=== PATIENT | female | born 1945 | race Caucasian/White ===

== ENCOUNTER 2016-04-01 23:18 | Observation (INO) | payer OTHER ==
[~2016-04-01] VITALS: Ht 157.5 cm; Wt 107.0 kg
--- NOTE | 2016-04-01 23:26 | NUR ---
LINDSEY TOOK 70 UNITS SHORT ACTING INSULIN "THE BLUE BOX" INSTEAD OF 7 UNITS. WHEN SHE REALIZED THE MIX UP, SHE TOOK 3 GLUCOSE TABLETS. ACCUCHECK 170 PRIOR TO INSULIN ADMINISTRATION. ACCUCHECK 208 UPON EMS ARRIVAL AND 230 APPROX 5 MINS AGO. ARRIVES AAOX3 AND OFFERS NO COMPLAINTS
--- NOTE | 2016-04-01 23:32 | NUR ---
DR ANGUIANO AT BEDSIDE FOR EVAL
--- NOTE | 2016-04-01 23:34 | ED GENERAL ADULT ---
See Addendum History of Present Illness General Chief Complaint: General Adult Stated Complaint: LINDSEY "I TOOK TOO MUCH INSULIN BY ACCIDENT" Source: patient, family, old records Exam Limitations: no limitations Vital Signs & Intake/Output Vital Signs & Intake/Output Vital Signs Date Time Temp Pulse Resp B/P Pulse O2 O2 Flow FiO2 Ox Delivery Rate 04/02 0628 98.0 69 16 139/65 97 Room Air 04/02 0601 98.0 69 16 139/65 99 Room Air 04/02 0342 98.0 68 18 158/68 97 Room Air 04/02 0122 97.5 77 16 120/58 97 Room Air 04/01 2328 99 Room Air 04/01 2325 98.0 81 16 133/67 99 Room Air ED Intake and Output 04/02 0000 04/01 1200 Intake Total Output Total Balance Patient 236 lb Weight Allergies Coded Allergies: NO KNOWN ALLERGIES (08/10/11) Triage Note: LINDSEY TOOK 70 UNITS SHORT ACTING INSULIN "THE BLUE BOX" INSTEAD OF 7 UNITS. WHEN SHE REALIZED THE MIX UP, SHE TOOK 3 GLUCOSE TABLETS. ACCUCHECK 170 PRIOR TO INSULIN ADMINISTRATION. ACCUCHECK 208 UPON EMS ARRIVAL AND 230 APPROX 5 MINS AGO. ARRIVES AAOX3 AND OFFERS NO COMPLAINTS Triage Nurses Notes Reviewed? yes HPI: Patient takes 70 units of long-acting and insulin every night however tonight she accidentally took 70 units of her short-acting insulin. Patient then ate 4 glucose tablets and comes in for evaluation. Patient's other complaint is that over the past few weeks she's been having worsening dyspnea on exertion. Patient denies any chest pain or chest tightness. There is no orthopnea. There is no coughing. There are no fevers or chills. Patient is trying to get in to see a nurse assistant secondary to this dyspnea on exertion. (ANNMARIE TRUJILLO,SORAYA Moralez) Past History Medical History Any Pertinent Medical History? see below for history Cardiovascular: hypertension, hyperlipidemia Endocrine: diabetes Cancer(s): breast cancer Surgical History Surgical History: non-contributory, masectomy Psychosocial History What is your primary language [place] Tobacco Use: Never used ETOH Use: denies use Illicit Drug Use: denies illicit drug use Family History Hx Contributory? No (ANNMARIE TRUJILLO,SORAYA Moralez) Review of Systems Review of Systems Constitutional: Reports: no symptoms. EENTM: Reports: no symptoms. Respiratory: Reports: see HPI, short of breath. Cardiovascular: Reports: no symptoms. GI: Reports: no symptoms. Genitourinary: Reports: no symptoms. Musculoskeletal: Reports: no symptoms. Skin: Reports: no symptoms. Neurological/Psychological: Reports: no symptoms. Hematologic/Endocrine: Reports: no symptoms. Immunologic/Allergic: Reports: no symptoms. All Other Systems: Reviewed and Negative (ANNMARIE TRUJILLO,SORAYA Moralez) Physical Exam Physical Exam General Appearance: well developed/nourished, alert, awake, mild distress Head: atraumatic, normal appearance Eyes: Bilateral: PERRL, EOMI. Ears, Nose, Throat: normal pharynx, normal ENT inspection, hearing grossly normal Neck: normal inspection, supple, full range of motion, NO JVD Respiratory: normal breath sounds, chest non-tender, no respiratory distress, lungs clear Cardiovascular: regular rate/rhythm, normal peripheral pulses Gastrointestinal: normal bowel sounds, soft, non-tender, no organomegaly Rectal: bROWN STOOL TRACE HEME POSITIVE Extremities: normal inspection, normal capillary refill, normal range of motion, no edema Neurologic/Psych: no motor/sensory deficits, awake, alert, oriented x 3, normal mood/affect Skin: intact, normal color, warm/dry Lymphatic: no anterior cervical ganesh Core Measures ACS in differential dx? No CVA/TIA Diagnosis: No Severe Sepsis Present: No Septic Shock Present: No (ANNMARIE TRUJILLO,SORAYA Moralez) Progress Differential Diagnoses I considered the following diagnoses in my evaluation of the patient: [ Accidental insulin overdose, CHF, [place], PE] Plan of Care: Orders Procedure Date/time Status Consistent Carbohydrate 1 04/02 B Active BLOOD PRODUCT PICKUP 04/02 0343 Active BLOOD PRODUCT PICKUP 04/[address] in observation 04/02 0050 Active Patient Data 04/02 0050 Active Code Status 04/02 0050 Active TYPE & SCREEN (NOT X-MATCH) 04/02 0029 Complete LEUKOCYTE POOR (PACKED CELLS) 04/02 0029 Active Telemetry/Fruit Preserver 04/01 2333 Active TROPONIN LEVEL 04/01 2333 Complete COMPREHENSIVE METABOLIC PANEL 04/01 2333 Complete CBC WITHOUT DIFFERENTIAL 04/01 2333 Complete B-TYPE NATRIURETIC PEP (BNP) 04/01 2333 Complete EKG 04/01 2333 Active FingerStick- Glucose 04/01 2326 Active Intake & Output 01/17 2325 Active Laboratory Tests 04/01/16 2324: Anion Gap 9, Estimated GFR > 60, BUN/Creatinine Ratio 33.8 H, Glucose 107 H, Calcium 9.5, Total Bilirubin 0.4, AST 15, ALT 24, Alkaline Phosphatase 49, Troponin I 0.01, Sug-N-Uvfbpiejpie Pept 188 H, Total Protein 6.4, Albumin 3.6, Globulin 2.8, Albumin/Globulin Ratio 1.3, CBC w Diff NO MAN DIFF REQ, RBC 3.17 L, MCV 70.3 L, MCH 22.0 L, RDW 17.3 H, MPV 8.3, Gran % 61.1, Lymphocytes % 24.7, Monocytes % 7.9, Eosinophils % 3.6, Basophils % 2.7 H, Absolute Granulocytes 2.8, Absolute Lymphocytes 1.1 L, Absolute Monocytes 0.4, Absolute Eosinophils 0.2, Absolute Basophils 0.1, PUBS MCHC 31.3 L Diagnostic Imaging: Viewed by Me: Radiology Read. Discussed w/RAD: Radiology Read. CXR Impression: PATIENT: ALEX MCDONNELL PRESENT AGE: 70 PATIENT ACCOUNT NO: [id number] : 44 LOCATION: [facility] ORDERING PHYSICIAN: SORAYA ANGUIANO MD SERVICE DATE: 04/01/16 EXAM TYPE: RAD - XRY- PORTABLE CHEST XRAY EXAMINATION: XR PORTABLE CHEST CLINICAL INFORMATION: Dyspnea on exertion COMPARISON: None. TECHNIQUE: Portable view of the chest was obtained. FINDINGS: Lung volumes are decreased, and there is mild elevation of the right hemidiaphragm. No focal consolidation is seen. No evidence of pneumothorax, pleural effusion, or pulmonary edema. Cardiac size is at the upper limits of normal. No acute osseous findings are seen. Left axillary clips are noted. IMPRESSION: Low lung volumes without additional acute findings. DICTATED BY: ROXANNA GREGG MD DATE/TIME DICTATED:04/02/1648 GEOCHEMISTRY TEACHER: JHONATAN DATE/TIME TRANSCRIBED:04/02/1648 CONFIDENTIAL, DO NOT COPY WITHOUT APPROPRIATE AUTHORIZATION. <Electronically signed in Other Vendor System> SIGNED BY: ROXANNA GREGG MD 04/02/16 0054 Initial ED EKG: NSR, nonspecific ST T wave chg Prior EKG: unchanged Rhythm Strip: normal sinus rhythm Hand-Off Endorsed To: ALF CHAVEZ MD Endorsed Time: 0700 Pending: other (RE-EVAL) (SORAYA ANGUIANO MD) Departure Departure Disposition: HOME OR SELF CARE Condition: Stable Clinical Impression Primary Impression: Hypoglycemia Secondary Impressions: Anemia Referrals: RICARDO TRUJILLO,TONY WILDER MD,KRISTY Jenkins (PCP/Family) Additional Instructions: Follow-up with gastroenterology. Return if symptoms worsen or for any concerns. Departure Forms: Customer Survey General Discharge Information (SORAYA ANGUIANO MD) Critical Care Note Critical Care Note Critical Care Time: mins: (75 MIONUTES) (SORAYA ANGUIANO MD) ED Attending Observation Initial Observation Note: I have seen and personally examined ALEX MCDONNELL on 04/02/16 at 0051. I agree with the current emergency department documentation. The disposition (admission or discharge) is uncertain at this time, she needs a period of observation for the following reason(s): [Patient is receiving 2 units of packed blood cells overnight. Patient's blood sugars also decreasing after the accidental insulin injection. D5 is being hung. Patient will require frequent Accu-Cheks and close monitoring secondary to the transfusion.] The ED Nurse caring for this patient has been personally informed as to what the patient is being observed for. Observation Re-Evaluation: I have reevaluated ALEX MCDONNELL on 04/02/16 at 0300. The physical findings that support the continued need to observe this patient include [PT DOING WELL WITH THE TRANSFUSION. Patient's finger stick is 145. At this point we will stop the D5 drip. Patient is doing well. Her lungs are clear to auscultation bilaterally cardiac exam is regular rate and rhythm.]. (SORAYA ANGUIANO MD) Observation Discharge: I have reevaluated ALEX MCDONNELL on 04/02/16 at 0804. The patient is: (x): Stable for discharge (): To be admitted to Nursing Floor (): To be placed in Observation on Nursing Floor (): For transfer to other facility The patient was being observed for hypoglycemia and anemia As a result of that observation, I have determined patients blood sugar has been stabilized and received PRBC for anemia. (ALF CHAVEZ MD)
--- NOTE | 2016-04-01 23:59 | NUR ---
LABS DRAWN AND SENT [facility] LAB [facility]
[2016-04-02 00:08] LABS: ABSOLUTE BASOPHIL COUNT 0.1 /CUMM (0.0-0.2); ABSOLUTE EOSINOPHIL COUNT 0.2 /CUMM (0.0-0.7); ABSOLUTE GRANULOCYTE CT 2.8 /CUMM (1.4-6.5); ABSOLUTE LYMPH COUNT 1.1 /CUMM (1.2-3.4); ABSOLUTE MONOCYTE COUNT 0.4 /CUMM (0.10-0.60); BASOPHIL % 2.7 % (0.0-2.0); EOSINOPHIL % 3.6 % (0-5); GRANULOCYTE % 61.1 % (42.2-75.2); HEMATOCRIT 22.3 % (37-47); MEAN CORPUSCULAR HGB CONC 31.3 G/DL (33.0-37.0); MEAN CORPUSCULAR VOLUME 70.3 FL (81.0-99.0); MEAN PLATELET VOLUME 8.3 FL (7.4-10.4); PLATELET COUNT 234 /CUMM (130-400); RBC DISTRIBUTION WIDTH 17.3 % (11.5-14.5); RED BLOOD CELL CT 3.17 /CUMM (4.20-5.40); WHITE BLOOD CELL COUNT 4.5 /CUMM (4.8-10.8)
--- NOTE | 2016-04-02 00:13 | NUR ---
CRITICAL TEST RESULTS [id number] ALEX MCDONNELL 70 F TESTS AND RESULTS: HGB = 7.0 / HCT = 22.3 Results received and read back by: SHARRI ANDRES Results received date and time: 04/02/16 0014 The following provider was notified of the results, and read the results back: ANNMARIE Notified date and time: 04/02/16 at 0010
--- NOTE | 2016-04-02 00:25 | NUR ---
DR ANGUIANO AT BEDSIDE FOR RECTAL EXAM--TRACE HEME POS
--- NOTE | 2016-04-02 00:43 | NUR ---
PINK TOP DRAWN AND SENT TO LAB
--- NOTE | 2016-04-02 00:54 | RADIOLOGY REPORT ---
EXAMINATION: XR PORTABLE CHEST CLINICAL INFORMATION: Dyspnea on exertion COMPARISON: None. TECHNIQUE: Portable view of the chest was obtained. FINDINGS: Lung volumes are decreased, and there is mild elevation of the right hemidiaphragm. No focal consolidation is seen. No evidence of pneumothorax, pleural effusion, or pulmonary edema. Cardiac size is at the upper limits of normal. No acute osseous findings are seen. Left axillary clips are noted. IMPRESSION: Low lung volumes without additional acute findings.
--- NOTE | 2016-04-02 00:55 | NUR ---
LAST FSBS = 100 DR ANGUIANO AWARE--D5W UP VIA PUMP AT 125ML/HR.
--- NOTE | 2016-04-02 01:30 | NUR ---
PT TO REMAIN IN ER EDOBS. AWAITING 1ST U PRBC'S
--- NOTE | 2016-04-02 02:00 | NUR ---
1ST U PRBC HUNG AT THIS TIME.
--- NOTE | 2016-04-02 02:20 | NUR ---
BLOOD INFUSING. NO CHANGE IN VS OR SIGNS OF REACTION. CM = NSR 70'S
--- NOTE | 2016-04-02 03:00 | NUR ---
FSBS = 145 DR ANGUIANO AWARE. D5W OFF AT THIS TIME.
--- NOTE | 2016-04-02 03:42 | NUR ---
1ST U PRBC'S FINISHED. PT REMAINS AWAKE, COOPERATIVE.
--- NOTE | 2016-04-02 04:02 | NUR ---
2ND U PRBC'S STARTED AT THIS TIME.
--- NOTE | 2016-04-02 04:28 | NUR ---
STATES SHE'S "FEELING A LITTLE ANXIOUS AND USUALLY TAKES ATIVAN BEFORE BED BUT DIDNOT TAKE IT TONITE" DR ANGUIANO AWARE. ATIVAN 0.5MG PO GIVEN
--- NOTE | 2016-04-02 05:10 | NUR ---
FSBS = 89. DR ANGUIANO AWARE--D5W STARTED AT 125ML/HR
--- NOTE | 2016-04-02 08:05 | NUR ---
PT ALERT AND ORIENTED WALKING AROUND ROOM AND REQUESRING TO BE DISCHARGED FS [address] BRE[address] PER DR CHAVEZ PT CAN BE DISCHARGED
[2016-04-02 08:06] VITALS: BP 142/70
== END 2016-04-02 09:00 ==
LOC: ERH 23:18 → ERHI 04-02 00:50 → EDBEDREQ 04-02 07:07 → ERHI 04-02 08:16
PROVIDERS: ADMIT Emergency Medicine
DX: T38.3X1A Poisoning by insulin and oral hypoglycemic [antidiabetic] drugs, accidental (unintentional), initial encounter (principal); Y92.009 Unspecified place in unspecified non-institutional (private) residence as the place of occurrence of the external cause; D64.9 Anemia, unspecified
CPT/HCPCS: 86920; 93005; 93010; J7060; P9016

== ENCOUNTER 2017-08-05 16:50 | Inpatient (IN) | payer OTHER ==
[~2017-08-05] VITALS: Ht 154.9 cm; Wt 97.5 kg
--- NOTE | 2017-08-05 17:55 | RADIOLOGY REPORT ---
EXAMINATION: XR PORTABLE CHEST CLINICAL INFORMATION: Pneumonia. Congestive heart failure. Shortness of breath. COMPARISON: 08/06/2016 TECHNIQUE: Portable frontal view of the chest was obtained. FINDINGS: Persistent elevation of the right hemidiaphragm. Low lung volumes. No focal consolidation or mass. No pleural effusion or pneumothorax. Normal pulmonary vascularity. Cardiac silhouette is prominent, likely accentuated by AP technique and low lung volumes. Normal pulmonary vascularity. IMPRESSION: Low lung volumes but no acute pulmonary disease.
[2017-08-05 18:04] LABS: ABSOLUTE BASOPHIL COUNT 0 /CUMM (0.0-0.2); ABSOLUTE EOSINOPHIL COUNT 0.1 /CUMM (0.0-0.7); ABSOLUTE GRANULOCYTE CT 3.8 /CUMM (1.4-6.5); ABSOLUTE LYMPH COUNT 1.3 /CUMM (1.2-3.4); ABSOLUTE MONOCYTE COUNT 0.4 /CUMM (0.10-0.60); BASOPHIL % 0.6 % (0.0-2.0); EOSINOPHIL % 1.6 % (0-5); GRANULOCYTE % 67.6 % (42.2-75.2); HEMATOCRIT 27.1 % (37-47); MEAN CORPUSCULAR HGB 29.6 PG (27.0-31.0); MEAN CORPUSCULAR HGB CONC 33.8 G/DL (33.0-37.0); MEAN CORPUSCULAR VOLUME 87.3 FL (81.0-99.0); MEAN PLATELET VOLUME 8.5 FL (7.4-10.4); PLATELET COUNT 242 /CUMM (130-400); RBC DISTRIBUTION WIDTH 13.3 % (11.5-14.5); RED BLOOD CELL CT 3.11 /CUMM (4.20-5.40); WHITE BLOOD CELL COUNT 5.6 /CUMM (4.8-10.8)
[2017-08-05 18:05] LABS: PT 12.3 SEC (9.4-12.5); PTT 27 SEC (25-37)
--- NOTE | 2017-08-05 18:15 | ED DYSPNEA/ASTHMA COMPLAINT ---
History of Present Illness General Chief Complaint: Dyspnea (COPD, CHF, Other) Stated Complaint: DIZZY, SOB, X 1 WEEK Source: patient Exam Limitations: no limitations Vital Signs & Intake/Output Vital Signs & Intake/Output Vital Signs Date Time Temp Pulse Resp B/P B/P Pulse O2 O2 Flow FiO2 Mean Ox Delivery Rate 08/05 2220 98.4 86 18 146/84 98 Room Air 08/058 98.5 85 18 142/65 97 Room Air 08/05 1839 84 18 138/64 Room Air 08/05 1839 87 138/64 08/05 1707 155/65 08/05 1701 97.5 96 20 95 Room Air Room Air Allergies Coded Allergies: No Known Allergies (08/05/17) Reconcile Medications Albuterol Sulfate (Proair Hfa) 90 MCG HFA.AER.AD 2 PUF INH AD PRN RESP. ( Reported) Aspirin (Ecotrin*) 81 MG TABLET.DR 1 TAB PO DAILY SUPPLEMENT (Reported) Clonazepam 2 MG TABLET 1 TAB PO QPM SLEEP (Reported) Clopidogrel Bisulfate (Clopidogrel) 75 MG TABLET 1 TAB PO DAILY BLOOD THINNER (Reported) Cyanocobalamin (Vitamin B-12) (Cyanocobalamin Injection) 1,000 MCG/ML VIAL 1 ML IM Q30D SUPPLEMENT (Reported) Ergocalciferol (Vitamin D2) (Vitamin D2) 50,000 UNIT CAPSULE 1 CAP PO Q3W SUPPLEMENT (Reported) Escitalopram Oxalate 20 MG TABLET 1 TAB PO DAILY DEPRESSION (Reported) Exenatide Microspheres (Bydureon Pen) (Unknown Strength) PEN.INJCTR (Unknown Dose) SC QW DM (Reported) Hydrocodone/Acetaminophen (Hydrocodon-Acetaminophen 5-325) 5 MG-325 MG TABLET 1 TAB PO BIDP PRN PAIN (Reported) Insulin Glargine,Hum.rec.anlog (Lantus Solostar) 100 UNIT/ML (3 ML) INSULN.PEN 60 UNIT SC QPM DM (Reported) Insulin Lispro (Humalog Kwikpen U-100) 100 UNIT/ML INSULN.PEN DM (Reported) Lisinopril/Hydrochlorothiazide (Lisinopril-Hctz 20-12.5 MG Tab) 20 MG-12.5 MG TABLET 1 TAB PO DAILY BP (Reported) Lovastatin 40 MG TABLET 1 TAB PO DAILY CHOLESTEROL (Reported) with food Metformin HCl (Metformin HCl ER) 500 MG [id number] 1 TAB PO BID DM (Reported) Metoprolol Tartrate 100 MG TABLET 1 TAB PO BID HEART/BP (Reported) Omeprazole 20 MG CAPSULE. 1 CAP PO DAILY GI (Reported) Triage Note: PT TO ED WITH FAMILY FOR INCREASED WEAKNESS, TIREDNESS, SOB X 1 WEEK. PT DENIES CHEST PAIN, OR NUMBNESS OR TINGLING. REPORTS SOME NAUSEA, BUT NO ABD PAIN. ALSO REPORTS +LIGHTHEADEDNESS. HX OF ANEMIA. Triage Nurses Notes Reviewed? yes Onset: Abrupt Duration: day(s): (3), constant, continues in ED, getting worse Timing: single episode today Severity: mild, moderate Activities at Onset: none Prior Episodes/Possible Cause: frequent episodes Associated Symptoms: weakness LMP (ages 10-50): unknown : No Patient currently breastfeeds: No HPI: 72-year-old female past medical history of present deficiency anemia, GI bleed, coronary artery disease, hypertension, diabetes presents for evaluation of dizziness, lightheadedness, weakness shortness of breath abdominal pain and melena. Patient states that starting 3 days ago she had a episode of black tarry stool once a day for the past 3 days. She also had a normal bowel movement today before coming in. No bright red blood. She does take Plavix. She has a history of GI bleed in 2017 the present similarly. She reports mild diffuse abdominal pain worsening epigastric area. No nausea vomiting no diarrhea. No fever. No chest pain. Symptoms are worse with exertion and improved at rest. She had a colonoscopy and endoscopy done when she had a GI bleed in March she also had a transfusion at that time. (Mik Dockery) Past History Travel History Traveled to [place] past 21 day No Medical History Any Pertinent Medical History? 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 No (Mik Dockery) Review of Systems Review of Systems Constitutional: Reports: weakness. EENTM: Reports: no symptoms. Respiratory: Reports: see HPI, short of breath. Cardiovascular: Reports: no symptoms. GI: Reports: see HPI, abdominal pain, melena. Genitourinary: Reports: no symptoms. Musculoskeletal: Reports: no symptoms. Skin: Reports: no symptoms. Neurological/Psychological: Reports: no symptoms. Hematologic/Endocrine: Reports: no symptoms. Immunologic/Allergic: Reports: no symptoms. All Other Systems: Reviewed and Negative (Mik Dockery) Physical Exam Physical Exam General Appearance: well developed/nourished, no apparent distress, alert, awake Head: atraumatic, normal appearance Eyes: Bilateral: PERRL, EOMI, pale conjunctivae. Ears, Nose, Throat: normal pharynx, normal ENT inspection, hearing grossly normal Neck: normal inspection, supple, full range of motion Respiratory: normal breath sounds, chest non-tender, no respiratory distress, lungs clear Cardiovascular: regular rate/rhythm, normal peripheral pulses Peripheral Pulses: 2+ radial (R), 2+ radial (L) Gastrointestinal: normal bowel sounds, soft, no organomegaly, tenderness ( DIFFUSE WORSE EPIGASTRIC ) Rectal: normal rectal tone, heme positive stool, bROWN STOOL HEME POSITIVE Extremities: normal inspection, normal range of motion, no edema Neurologic/Psych: no motor/sensory deficits, awake, alert, oriented x 3 Skin: intact, normal color, warm/dry Core Measures ACS in differential dx? No CVA/TIA Diagnosis No Sepsis Present: No Sepsis Focused Exam Completed? No (Mik Dockery) Progress Differential Diagnosis: asthma, AMI, bronchitis, CHF, COPD, musculoskeletal pain , pericarditis, pulmonary embolism, pneumonia, pneumothorax, unstable angina, gi BLEEDING, PEPTIC DISEASE, GASTRITIS, PANCREATITIS, DIVERTICULITIS Plan of Care: Orders Procedure Date/time Status Nothing by Mouth 08/06 B Active TROPONIN LEVEL 08/06 599 Active CBC WITHOUT DIFFERENTIAL 08/06 06 Active BASIC ELECTROLYTES PLUS BUN&CR 08/06 599 Active EKG 08/06 0600 Active Weight 08/06 2255 Active Vital Signs 08/06 2255 Active Teach/Educate 08/06 2255 Active Pain Treatment and Response 08/06 2255 Active Nutritional Intake, Monitor 08/06 2255 Active Isolation 08/06 2255 Active Intake & Output 08/06 2255 Active Patient Care Conference 08/06 2255 Active Activity/Ambulation 05/23 2256 Active TYPE & SCREEN (NOT X-MATCH) 08/06 2247 Active PT Evaluate & Treat 08/05 2233 Active Saline Lock 08/05 2233 Active Pathway - chart 08/05 2233 Active House Staff 08/05 2233 Active Patient Data 08/05 2144 Active Add-on Test (ER Only) 08/05 2100 Active OXYGEN SETUP (GEN) 08/05 2030 Active Saline Lock 08/05 2030 Active Admit to inpatient 08/05 2030 Active Vital Signs 08/05 2030 Active Activity/Ambulation 08/05 2030 Active Code Status 08/05 2030 Active Add-on Test (ER Only) 08/05 1820 Active LIPASE 08/05 173 Complete D-DIMER 08/05 1730 Complete Intake & Output 08/05 1725 Complete MISTAKE 08/05 1719 Active PARTIAL THROMBOPLASTIN TIME 08/05 1719 Complete PROTHROMBIN TIME 08/05 1719 Complete URINALYSIS 08/05 1656 Active TROPONIN LEVEL 08/05 165 Complete COMPREHENSIVE METABOLIC PANEL 08/05 1656 Complete CBC WITHOUT DIFFERENTIAL 08/05 1656 Complete EKG 08/05 1653 Active TRC EVALUATION (GEN) 08/05 UNK Active Lab Add-on Test 08/05 UNK Active VTE Mechanical Prophylaxis 08/05 UNK Active Vital Signs 08/05 UNK Active MISTAKE 08/05 UNK Complete Intake & Output 08/05 UNK Active Hemoccult 08/05 UNK Active Activity/Ambulation 08/05 UNK Active Current Medications Sig/Jessica Start time Last Medication Dose Stop Time Status Admin Atorvastatin Calcium 20 MG 1700 08/06 1700 AC (Lipitor) Insulin Detemir 20 UNITS BID 08/06 0900 UNVr (Levemir) Escitalopram Oxalate 20 MG 0800 08/06 0800 AC (Lexapro) Insulin Human Regular 0 Q6 08/05 2359 AC (NovoLIN R) Pantoprazole Sodium 40 MG DAILY 08/05 2330 AC (Protonix) Sodium Chloride 1,000 ML DAILY 08/05 2300 AC 08/05 (Normal Saline 0.9%) 08/06 0859 2322 Albuterol Sulfate 2 PUF Q4-6 PRN PRN 08/05 224 AC (Ventolin) Clonazepam 2 MG QPM 08/05 224 AC (Klonopin 1MG Tab) 08/13 2243 Laboratory Tests 08/05/17 1730: Anion Gap 14, Estimated GFR > 60, BUN/Creatinine Ratio 23.8, Glucose 141 H, Calcium 9.6, Total Bilirubin 0.5, AST 15, ALT 21, Alkaline Phosphatase 44, Troponin I < 0.01, Total Protein 6.6, Albumin 4.0, Globulin 2.6, Albumin/ Globulin Ratio 1.5, Lipase 44, PT 12.3, INR 1.13, APTT 27, D-Dimer High Sensitivty < 200, CBC w Diff NO MAN DIFF REQ, RBC 3.11 L, MCV 87.3, MCH 29.6, MCHC 33.8, RDW 13.3, MPV 8.5, Gran % 67.6, Lymphocytes % 23.4, Monocytes % 6.8, Eosinophils % 1.6, Basophils % 0.6, Absolute Granulocytes 3.8, Absolute Lymphocytes 1.3, Absolute Monocytes 0.4, Absolute Eosinophils 0.1, Absolute Basophils 0 \ Patient seen and evaluated. She is here with episodes of melena dizziness lightheadedness shortness of breath worse on exertion. She has a remote history of GI bleed. She is taking Plavix. Doesn't currently stable she is not orthostatic. Rectal exam is heme positive. Labs EKG CTA of the abdomen pelvis ordered. Blood work shows a hemoglobin of 9. Her previous blood work was done in November 2016 and showed a normal hemoglobin of 12. Remaining labs are unchanged. Spoke with Dr. Scherer who agrees with the plan of admitting for serial H&H's. Does not feel like she needs a emergent scope. He she will be admitted for GI consult, serial labs, monitoring of vital signs medication adjustment case discussed with Dr. CHAVEZ and he agrees. Diagnostic Imaging: Viewed by Me: Radiology Read, CT Scan. Discussed w/RAD: Radiology Read, CT Scan. Radiology Impression: PATIENT: ALEX MCDONNELL PRESENT AGE: 72 PATIENT ACCOUNT NO: [id number] : 44 LOCATION: [facility] ORDERING PHYSICIAN: Mik ROCK SERVICE DATE: 08/05/17 EXAM TYPE: CAT - CT ABD & PELVIS ANGIOGRAM EXAMINATION: CTA ABDOMEN AND PELVIS WITH AND WITHOUT CONTRAST : CT GI BLEEDING STUDY CLINICAL INFORMATION: GI BLEEDING ACUTE ABDOMEN. MILD DIFFUSE ABDOMINAL PAIN MELENA COMPARISON: No pertinent prior studies are available for comparison. TECHNIQUE: Multidetector volumetric imaging was performed from the lung bases to the pubic symphysis before and after the administration of: Intravenous contrast: 95 mL Optiray 320. No contrast reaction reported Sagittal and coronal reformatted images were obtained on the technologist workstation. FINDINGS: STOMACH: No abnormal wall thickening or mass. No intraluminal contrast accumulation to suggest hemorrhage. SMALL BOWEL: No abnormal wall thickening or dilation. No intraluminal contrast accumulation to suggest hemorrhage. COLON: There is expected mucosal enhancement, particularly conspicuous in the rectum, but no intraluminal contrast accumulation to suggest hemorrhage. No colonic wall thickening or pericolonic inflammatory changes. Diverticulosis without evidence of diverticulitis. Although the appendix is not definitely seen, there are no right lower quadrant inflammatory changes to suggest acute appendicitis. LUNG BASES: No nodules, mass , or focal consolidation. PLEURA: No pleural effusion. LIVER, GALLBLADDER, AND BILIARY TREE: The liver is normal in size, shape, and attenuation. No focal hepatic lesion or biliary ductal dilatation is present. The gallbladder is unremarkable with no evidence of radiopaque gallstones, gallbladder wall thickening, or obvious pericholecystic inflammatory changes. PANCREAS: The pancreas is diffusely atrophic. No pancreatic ductal dilatation. No mass seen. SPLEEN: Normal size. No focal lesion. ADRENAL GLANDS: Normal; no mass. KIDNEYS AND URETERS: The kidneys are normal in size, shape, and attenuation. No hydronephrosis, hydroureter, or calculi. ABDOMINAL WALL: Fat-containing midline hernia. LYMPHOVASCULAR STRUCTURES: Normal caliber abdominal aorta. No retroperitoneal lymphadenopathy. No mesenteric, iliac, or inguinal lymphadenopathy. BLADDER: No focal mass or wall thickening seen. No bladder calculi. PELVIC VISCERA: Normal CT appearance of the uterus. No adnexal mass seen. OSSEOUS STRUCTURES: No acute or suspicious osseous abnormality. IMPRESSION : No evidence of active intraluminal contrast accumulation to suggest an active site of GI bleeding at the time of the scan. DICTATED BY: Naun Ho MD DATE/TIME DICTATED:08/05/172033 HOUSE PLAYER:JHONATAN DATE/TIME TRANSCRIBED:08/05/172033 CONFIDENTIAL, DO NOT COPY WITHOUT APPROPRIATE AUTHORIZATION. <Electronically signed in Other Vendor System> SIGNED BY: Naun Ho MD 08/05/172055 CXR Impression: PATIENT: ALEX MCDONNELL PRESENT AGE: 72 PATIENT ACCOUNT NO: [id number] : 44 LOCATION: [facility] ORDERING PHYSICIAN: Mik ROCK SERVICE DATE: 08/05/17 EXAM TYPE: RAD - XRY-PORTABLE CHEST XRAY EXAMINATION: XR PORTABLE CHEST CLINICAL INFORMATION: Pneumonia. Congestive heart failure. Shortness of breath. COMPARISON: 08/06/2016 TECHNIQUE: Portable frontal view of the chest was obtained. FINDINGS: Persistent elevation of the right hemidiaphragm. Low lung volumes. No focal consolidation or mass. No pleural effusion or pneumothorax. Normal pulmonary vascularity. Cardiac silhouette is prominent, likely accentuated by AP technique and low lung volumes. Normal pulmonary vascularity. IMPRESSION: Low lung volumes but no acute pulmonary disease. DICTATED BY: Naun Ho MD DATE/TIME DICTATED:08/05/171749 HOUSE PLAYER:JHONATAN DATE/TIME TRANSCRIBED:08/05/171749 CONFIDENTIAL, DO NOT COPY WITHOUT APPROPRIATE AUTHORIZATION. <Electronically signed in Other Vendor System> SIGNED BY: Naun Ho MD 08/05/171754 Initial ED EKG: SINUS RHYTHM, pvc, INTRAVENTRICULAR CONDUCTION DELAY BORDERLINE r-WAVE PROGRESSION (Mik Dockery) Departure Departure Condition: Stable Clinical Impression Primary Impression: GI bleeding Qualifiers: GI bleed type/associated pathology: unspecified gastrointestinal hemorrhage type Qualified Code: K92.2 - Gastrointestinal hemorrhage, unspecified Secondary Impressions: Symptomatic anemia Referrals: Kaitlin Marie MD (PCP/Family) Departure Forms: Customer Survey General Discharge Information Admission Note Spoke With: Rowdy Rosenberg MD Documentation of Exam: Documentation of any treatments & extenuating circumstances including Concerns Regarding Discharge (functional status, medication knowledge or non-compliance, living conditions, etc.) that warrant an admission rather than observation: Patient is on Plavix. She is reporting multiple episodes of melena with epigastric pain. She is heme positive here. Her hemoglobin is below her baseline. She is a high risk patient [Serial H&H's, monitoring of vital signs, GI consult, IV fluids] (Mik Dockery) Departure Disposition: STILL A PATIENT PA/SUBASSEMBLIES WIRER Co-Sign Statement Statement: ED Attending supervision documentation- x I saw and evaluated the patient. I have also reviewed all the pertinent lab results and diagnostic results. I agree with the findings and the plan of care as documented in the PA's/SUBASSEMBLIES WIRER's documentation. Hx GI bleed with melena, weakness: symptomatic anemia [] I have reviewed the ED Record and agree with the PA's/SUBASSEMBLIES WIRER's documentation. [] Additions or exceptions (if any) to the PAs/SUBASSEMBLIES WIRER's note and plan are summarized below: [] (Samia TRUJILLO,Maxwell) Critical Care Note Critical Care Note Critical Care Time: non-applicable (Mik Dockery)
--- NOTE | 2017-08-05 20:56 | CT SCAN REPORT ---
EXAMINATION: CTA ABDOMEN AND PELVIS WITH AND WITHOUT CONTRAST: CT GI BLEEDING STUDY CLINICAL INFORMATION: GI BLEEDING ACUTE ABDOMEN. MILD DIFFUSE ABDOMINAL PAIN MELENA COMPARISON: No pertinent prior studies are available for comparison. TECHNIQUE: Multidetector volumetric imaging was performed from the lung bases to the pubic symphysis before and after the administration of: Intravenous contrast: 95 mL Optiray 320. No contrast reaction reported Sagittal and coronal reformatted images were obtained on the technologist workstation. FINDINGS: STOMACH: No abnormal wall thickening or mass. No intraluminal contrast accumulation to suggest hemorrhage. SMALL BOWEL: No abnormal wall thickening or dilation. No intraluminal contrast accumulation to suggest hemorrhage. COLON: There is expected mucosal enhancement, particularly conspicuous in the rectum, but no intraluminal contrast accumulation to suggest hemorrhage. No colonic wall thickening or pericolonic inflammatory changes. Diverticulosis without evidence of diverticulitis. Although the appendix is not definitely seen, there are no right lower quadrant inflammatory changes to suggest acute appendicitis. LUNG BASES: No nodules, mass, or focal consolidation. PLEURA: No pleural effusion. LIVER, GALLBLADDER, AND BILIARY TREE: The liver is normal in size, shape, and attenuation. No focal hepatic lesion or biliary ductal dilatation is present. The gallbladder is unremarkable with no evidence of radiopaque gallstones, gallbladder wall thickening, or obvious pericholecystic inflammatory changes. PANCREAS: The pancreas is diffusely atrophic. No pancreatic ductal dilatation. No mass seen. SPLEEN: Normal size. No focal lesion. ADRENAL GLANDS: Normal; no mass. KIDNEYS AND URETERS: The kidneys are normal in size, shape, and attenuation. No hydronephrosis, hydroureter, or calculi. ABDOMINAL WALL: Fat-containing midline hernia. LYMPHOVASCULAR STRUCTURES: Normal caliber abdominal aorta. No retroperitoneal lymphadenopathy. No mesenteric, iliac, or inguinal lymphadenopathy. BLADDER: No focal mass or wall thickening seen. No bladder calculi. PELVIC VISCERA: Normal CT appearance of the uterus. No adnexal mass seen. OSSEOUS STRUCTURES: No acute or suspicious osseous abnormality. IMPRESSION: No evidence of active intraluminal contrast accumulation to suggest an active site of GI bleeding at the time of the scan.
[2017-08-05] MEDS ORDERED: METOPROLOL TAR100 M1 PO (21:29)
[2017-08-05] MEDS ORDERED: HYDROCODON-ACE1 EAC2 PO (21:29)
[2017-08-05] MEDS ORDERED: OMEPRAZOLE20 M2 PO (21:29)
[2017-08-05] MEDS ORDERED: METFORMIN HCL500 M5 PO (21:29)
[2017-08-05] MEDS ORDERED: CLONAZEPAM2 M2 PO (21:30)
[2017-08-05] MEDS ORDERED: HUMALOG KW100 UNIT/1 SC (21:30)
[2017-08-05] MEDS ORDERED: BYDUREON P2 MG/0.65 SC (21:31)
[2017-08-05] MEDS ORDERED: LISINOPRIL-HCT1 EACH PO (21:31)
[2017-08-05] MEDS ORDERED: ESCITALOPRAM OX20 MG PO (21:32)
[2017-08-05] MEDS ORDERED: ASPIRIN EC81 M1 PO (21:32)
[2017-08-05] MEDS ORDERED: LOVASTATIN40 M1 PO (21:32)
[2017-08-05] MEDS ORDERED: CYANOCOBAL1000 MCG/2 IM (21:33)
[2017-08-05] MEDS ORDERED: VITAMIN D250000 UNIT PO (21:33)
[2017-08-05] MEDS ORDERED: LANTUS SOL100 UNIT/1 SC (21:33)
[2017-08-05] MEDS ORDERED: PROAIR HFA8.5 GM INH (21:34)
[2017-08-05] MEDS ORDERED: CLOPIDOGREL75 M1 PO (21:34)
--- NOTE | 2017-08-05 21:47 | History & Physical ---
Irena Jensen 08/05/17 3106: General Information and HPI MD Statement: I have seen and personally examined ALEX MCDONNELL and documented this H&P. The patient is a 72 year old F who presented with a patient stated chief complaint of [GI Bleed]. Source of Information: patient, old records Exam Limitations: no limitations History of Present Illness: Ms. Sarmiento a 72yo F w/ pMH of hypertension, hyperlipidemia, diabetes, breast cancer status post mastectomy, normocytic anemia, presented to ER with family for increased weakness, tiredness, and shortness of breath for the past week started around last Thursday prior to this admission. Patient did endorse some lightheadedness when she got up and walk around/exertion along with some feelings of heart racing, and some mild mid lower abdominal pain not associated with the bowel movement activities. Patient also endorsed some dark stools, about 3-4 times per day, on Thursday, Thursday, and Thursday, however not today prior to this admission. The patient described this to as dark and tarry/sticky, however denies any loose stools. Patient stated that the symptoms was worse similar to what she had back in March 2016 where she was observed overnight in ER, was 2 units of blood transfusion for anemia, and later a colonoscopy/ building by Dr. Keys, however no active source of bleeding was found, and she had been symptom-free ever since. Patient was some low appetite for the past days, especially today, and has not been compliant with her insulin because of loss of strength. Patient was seen Dr. brandon for her diabetes. During our clinical interaction, patient denied fever/diaphoresis/night sweat/ weight change/cough/Chest Pain/rinary abnormality, or other skin/musculoskeletal /neurological/mood disorders. -Smoking: Less than pack a day, and quit more than 40 years ago -Alcohol: Denied -Rec Drugs: Denied Allergies/Medications Allergies: Coded Allergies: No Known Allergies (08/05/17) Home Med list Albuterol Sulfate (Proair Hfa) 90 MCG HFA.AER.AD 2 PUF INH AD PRN RESP. ( Reported) Aspirin (Ecotrin*) 81 MG TABLET.DR 1 TAB PO DAILY SUPPLEMENT (Reported) Clonazepam 2 MG TABLET 1 TAB PO QPM SLEEP (Reported) Clopidogrel Bisulfate (Clopidogrel) 75 MG TABLET 1 TAB PO DAILY BLOOD THINNER (Reported) Cyanocobalamin (Vitamin B-12) (Cyanocobalamin Injection) 1,000 MCG/ML VIAL 1 ML IM Q30D SUPPLEMENT (Reported) Ergocalciferol (Vitamin D2) (Vitamin D2) 50,000 UNIT CAPSULE 1 CAP PO Q3W SUPPLEMENT (Reported) Escitalopram Oxalate 20 MG TABLET 1 TAB PO DAILY DEPRESSION (Reported) Exenatide Microspheres (Bydureon Pen) (Unknown Strength) PEN.INJCTR (Unknown Dose) SC QW DM (Reported) Hydrocodone/Acetaminophen (Hydrocodon-Acetaminophen 5-325) 5 MG-325 MG TABLET 1 TAB PO BIDP PRN PAIN (Reported) Insulin Glargine,Hum.rec.anlog (Lantus Solostar) 100 UNIT/ML (3 ML) INSULN.PEN 60 UNIT SC QPM DM (Reported) Insulin Lispro (Humalog Kwikpen U-100) 100 UNIT/ML INSULN.PEN DM (Reported) Lisinopril/Hydrochlorothiazide (Lisinopril-Hctz 20-12.5 MG Tab) 20 MG-12.5 MG TABLET 1 TAB PO DAILY BP (Reported) Lovastatin 40 MG TABLET 1 TAB PO DAILY CHOLESTEROL (Reported) with food Metformin HCl (Metformin HCl ER) 500 MG [id number] 1 TAB PO BID DM (Reported) Metoprolol Tartrate 100 MG TABLET 1 TAB PO BID HEART/BP (Reported) Omeprazole 20 MG CAPSULE.DR 1 CAP PO DAILY GI (Reported) Past History Travel History Traveled to [place] past 21 day No Medical History Neurological: NONE EENT: NONE Cardiovascular: hypertension, hyperlipidemia Gastrointestinal: GI BLEED Hepatic: NONE Renal: NONE Musculoskeletal: NONE Psychiatric: NONE Endocrine: diabetes Blood Disorders: anemia Cancer(s): breast cancer 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 Exam & Diagnostic Data Last 24 Hrs of Vital Signs/I&O Vital Signs Date Time Temp Pulse Resp B/P B/P Pulse O2 O2 Flow FiO2 Mean Ox Delivery Rate 08/05 2220 98.4 86 18 146/84 98 Room Air 08/06 2047 98.5 85 18 142/65 97 Room Air 08/05 1839 84 18 138/64 Room Air 08/05 1839 87 138/64 08/05 1707 155/65 08/05 1701 97.5 96 20 95 Room Air Room Air Intake & Output 08/06 0800 08/06 0000 08/05 1600 Intake Total 0 Output Total Balance 0 Intake, Oral 0 Patient 95.254 kg Weight Weight Reported by Patient Measurement Method Physical Exam General Appearance Alert, Oriented X3, Cooperative, No Acute Distress Skin No Rashes, No Breakdown, No Significant Lesion Skin Temp/Moisture Exam: Warm/Dry Sepsis Skin Exam (color): Normal for Ethnicity HEENT Atraumatic, PERRLA, Mucous Membr. moist/pink Neck Supple, No JVD, No thryomegaly Lymphatic Axillary nl, Cervical nl, s/p left masectomy Cardiovascular Regular Rate, Normal S1, Normal S2 Lungs Clear to Auscultation, Normal Air Movement Abdomen Normal Bowel Sounds, Soft, LUQ/Mid ab tenderness on palpation Neurological Normal Gait, Normal Speech, Strength at 5/5 X4 Ext Extremities No Clubbing, Normal Pulses Last 24 Hrs of Labs/Alex: Laboratory Tests 08/05/17 1730: Anion Gap 14, Estimated GFR > 60, BUN/Creatinine Ratio 23.8, Glucose 141 H, Calcium 9.6, Iron Pending, TIBC Pending, Ferritin Pending, Total Bilirubin 0.5, AST 15, ALT 21, Alkaline Phosphatase 44, Troponin I < 0.01, Total Protein 6.6, Albumin 4.0, Globulin 2.6, Albumin/Globulin Ratio 1.5, Lipase 44, PT 12.3, INR 1.13, APTT 27, D-Dimer High Sensitivty < 200, CBC w Diff NO MAN DIFF REQ, RBC 3.11 L, MCV 87.3, MCH 29.6, MCHC 33.8, RDW 13.3, MPV 8.5, Gran % 67.6, Lymphocytes % 23.4, Monocytes % 6.8, Eosinophils % 1.6, Basophils % 0.6, Absolute Granulocytes 3.8, Absolute Lymphocytes 1.3, Absolute Monocytes 0.4, Absolute Eosinophils 0.1, Absolute Basophils 0 Assessment/Plan Assessment: On admission, Vitals: Stable, afebrile, pulse 85, RR 18, BP 142/65, 97% on room air, orthostatic negative without dropping blood pressure/increased heart rate. Guaiac +ve in the ER without BRBPR -CBC: No leukocytosis, H/H9 0.2/27.1 (baseline 12.0 in 11/2016). Unremarkable PT/INR/d-dimer -BMP: Unremarkable, except BUN 19, -UA/Microbiology: Previous urine culture showed pansensitive E. coli back in 2069 -Colonoscopy 05/2016: 1. Left-sided diverticulosis. 2. Patchy erythematous changes in the cecum not consistent with AVMs. 3. Small internal hemorrhoids. -CXR: -EKG: NSR w/o significant ST-T abnormalities. -Interventions in ER: Problem list & Assessment: #Symptomatic anemia secondary to GI bleed #pMH of hypertension, hyperlipidemia, diabetes, breast cancer status post mastectomy, normocytic anemia, Hospital Course: - Admit to general medicine floor as patient has not been eating well. DVT prophylaxis ALPS NPO starting midnight Full Code As Ranked By This Provider Problem List: 1. GI bleeding Qualifiers GI bleed type/associated pathology: unspecified gastrointestinal hemorrhage type Qualified Code: K92.2 - Gastrointestinal hemorrhage, unspecified 2. Symptomatic anemia Core Measures/Misc (11/30) Acute Coronary Syndrome ACS Diagnosis: No Congestive Heart Failure Congestive Heart Failure Diagnosis No Cerebrovascular Accident CVA/TIA Diagnosis: No VTE (View Protocol) VTE Risk Factors Age>40 No Mechanical VTE Prophylaxis d/t N/A MechProphylax Ordered No VTE Pharm Prophylaxis d/t Medical Contraindication Sepsis (View protocol) Sepsis Present: No If YES complete Sepsis Event Note If YES complete Sepsis Event Note Ian Finn 08/05/17 2215: Core Measures/Misc (11/30) Sepsis (View protocol) If YES complete Sepsis Event Note If YES complete Sepsis Event Note Resident Review Statement Resident Statement: examined this patient, discussed with nutrition intern Other Findings: Ms Mcdonnell is a 72 yr old woman w/ a PMHx of hypertension, class III obesity, type 2 diabetes, Niki's thyroiditis breast cancer status post mastectomy hyperlipidemia, previous GI bleed, carotid stenosis (follows up with Dr. Church dx'ed 2013 <50% on the left and 50-79% on the right), vitamin B12 deficiency came to the hospital with a chief concern of increased weakness, tiredness and dyspnea for the last 1 week. She also reported to be orthostatically dizzy. Reported to have dark stool 1 day prior to the admission, with no bright red blood. This was associated with abdominal discomfort, located in the center of the abdomen with no radiation. Reported nausea, but did not have any vomiting or diarrhea. No chest pain, but reported occassional palpitations. She has a history of carotid artery stenosis who follows up with Dr. Church, no intervention was done. She doesnt have any h/o CAD and follows up with Dr. Bang, who underwent rick scan in 2017 that was found to be normal, and was her echocardiogram ( record unavailable at this time). At the time of admission-temperature 97.5, pulse rate 96, respiration 20, blood pressure 155/65, pulse ox 95% on room air. General Exam: AAOx3, No acute distress, Skin: No rashes, no breakdown;HEENT: PERRLA, EOMI;Neck: Supple, No JVD ;No cervical lymphadenopathy;CVS: Reg Rate, Normal S1,S2, No MGR;Resp: Normal air entry, no ronchi/rales;Abdomen: Soft, No tenderness, Normal Bowel Sounds, possible umbilical hernia;Neuro: Normal Speech, Strength 5/5 b/l x 4 extremities, Sensation intact, CN III-XII NL, Reflexes 2+; Extremities: No cyanosis, no pedal edema Pertinent Findings-WBC 5.6, hemoglobin 9.2 (baseline in between 9-11 w/ lowest Hb was 7.0 in 03/2016. Platelet count 242. Sodium 140, potassium 4.1, BUN 19, creatinine 0.8. Calcium 9.6, AST 15, ALT 21, alkaline phosphatase 41, INR 1.13. Last HbA1c 6.6 (08/04/2017). Last TSH done 11/30 was 1.19. CTA pelvis with and without contrast with GI bleeding study 08/04/17: No evidence of active intraluminal contrast accumulation to suggest an active site of GI bleeding at the time of the scan. Chest x-ray 08/04/17-Low lung volumes but no acute pulmonary disease. Etiology in her case is likely GI bleed, w/o clear e/o upper vs lower at this time. Diverticultis could be in the differential. She continues to be on dual antiplatelet therapy, which could be contributing to her loss of blood. She also has iron deficiency and vitamin B12 deficiency which could be contributing to her decreased production. Other causes such as hemolysis, malignancy could be considered, but laboratory findings are not consistent with hemolysis. In regards to her multinodular goiter dx'ed in 2010 w/ thyroid antibodies were positive which consistent with Niki's thyroiditis w/ negative biopsy of right dominant thyroid nodule for malignancy. Last upper endoscopy and colonoscopy findings 06/10/16- 1. Grossly normal upper endoscopy status post random biopsies of the stomach and small bowel. 1. Left-sided diverticulosis. 2. Patchy erythematous changes in the cecum not consistent with AVMs. 3. Small internal hemorrhoids. Problem list: #1 iron deficiency anemia, with vitamin B12 contributing.(normal MCV). 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 #1 type and crossmatch, IV large bore intravenous access. #2 CBC every 12 hours. Check retic count. #3 check iron studies, vitamin B12 level. She is currently on vitamin B12 IM injections. If she indeed has low iron, she should be started on Fe supplements po at a high dose atleast TID for now. #4 Nothing by mouth for now, pending evaluation by gastroenterology. #5 Avoid all antiplatelet medications at this time. Unsure of the reason for her being on ASA+plavix #6 fluids-normal saline at 100 mL an hour. #7 If the H&H drops, or has symptoms would likely have to transfuse. Goal 8.0. 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 Check EKG and trop in the am. #8 change long-acting insulin to Levemir 20 units twice a day. If the blood sugars are elevated in the next 24 hours, can change Levemir to 30 units twice a day which is equivalent to Lantus 60 units daily. Continue TISS ( regular NPO scale). #9 check TSH, which needs to be ruled out given her h/o of hashimotos and not being on LT4. Hypothyroidism can also cause anemia. #10 PT/OT. Housekeeping: DVT prophylaxis-mechanical only. Med rec done. Full code. NPO for now, pending GI evaluation. Consults: 1. Gastroenterology 2. Endo- if blood sugars are not adequately controlled in the next 24 hrs. Chet TRUJILLO, [facility] 08/05/17 2319: Core Measures/Misc (11/30) Sepsis (View protocol) If YES complete Sepsis Event Note If YES complete Sepsis Event Note Attending MD Review Statement Attending Statement Attending MD Statement: examined this patient, discuss w/resident/PA/PARAFFINER, agreed w/resident/PA/PARAFFINER, discussed with family, reviewed images, amended to note Attending Assessment/Plan: 72 yo F with h/o HTN, T2DM on insulin, Niki's thyroiditis, nonobstructive CAD, carotid stenosis, breast cancer s/p left mastectomy, iron and B12 deficiency anemia, is here for 1-week h/o progressively worsening weakness, dyspnea, palpitations and lightheadedness. She denies chest pain. C/o mid abdominal discomfort and nausea, but no vomiting or hematemesis. She notes dark stools for the past 3 days, 3-4 soft BM's every day, no BRBPR. She does not use excessive NSAIDs. She uses only tylenol as needed. She reports similar symptoms in Mar 2016 when she was evaluated in the ER, noted to be anemic to 10/04 requiring PRBC transfusion. She was discharged from ER. Prior to GI eval, she had a nuclear stress test with Dr. Bang which was normal. She underwent EGD and colonoscopy (May 2016) normal EGD, left sided diverticulosis and small internal hemorrhoids. Patient was advised to take iron supplements and it is unclear if she is taking it. Vitals stable. Exam as above. Labs: H/H 9.2/27.1 (11-/30-35), BUN 19, glucose 141, trop neg. Orthostats negative. CXR: low lung volumes. CTA abd/pelvis: no active bleeding site. EKG: sinus rhythm, PVC's, no acute changes. Rectal exam: guaiac positive brown stool. Assessment and plan: 1. Acute on chronic anemia of blood loss and iron deficiency 2. Symptomatic anemia 3. H/o Niki's thyroiditis 4. T2DM on insulin 5. H/o nonobstructive CAD and carotid stenosis (~ 70%) on aspirin and plavix - Admit to General medicine - Type and crossmatch - Goal Hb > 8.0 - Trend CBC - Guaiac all stools - Check iron studies, B12, TSH, folic acid - Hold aspirin and plavix - Continue IV protonix - GI consult - NPO for possible EGD in AM - Gentle hydration - Repeat EKG and troponin in AM - Diabetes management last A1C 6.6 DVT ppx Alps. Full code.
--- NOTE | 2017-08-05 23:20 | Admission Certification ---
Admission Certification Certification Statement - As attending physician, I certify that at the time of - admission, based on clinical presentation, severity of - symptoms, need for further diagnostic testing and - therapeutic interventions, and risk of adverse outcomes - without in-hospital treatment, in my clinical assessment, - this patient requires an acute hospital stay for a minimum - of two nights or longer. I have also considered psychsocial - factors such as support system, advanced age, financial - issues, cognitive issues, and failed out-patient treatments, - past re-admission history, safety of patient, and lack of - compliance as applicable. Specific rationale supporting this admission is: Symptomatic anemia, acute on chronic anemia.
[2017-08-06 00:22] VITALS: BP 162/62
[2017-08-06 06:22] VITALS: BP 124/50
--- NOTE | 2017-08-06 07:15 | PN- Housestaff ---
Clay TRUJILLO,Trixie 08/06/17 0714: Subjective Follow-up For: Weakness Shortness of breath Subjective: Patient seen and examined at bedside and overnight events. Patient says she does not have any further episodes of shortness of breath. She denies chest pain, abdominal pain, nausea, vomiting. Review of Systems Constitutional: Reports: no symptoms, see HPI. Objective Last 24 Hrs of Vital Signs/I&O Vital Signs Date Time Temp Pulse Resp B/P B/P Pulse O2 O2 Flow FiO2 Mean Ox Delivery Rate 08/06 0905 Room Air Room Air 08/06 06 98.6 85 20 124/50 98 Room Air 08/06 0022 98.4 92 20 162/62 98 Room Air 08/06 0000 Room Air 08/05 2240 Room Air 08/05 2221 98.4 86 18 146/84 98 Room Air 08/05 2048 98.5 85 18 142/65 97 Room Air 08/05 1839 84 18 138/64 Room Air 08/05 1839 87 138/64 08/05 1707 155/65 08/05 1701 97.5 96 20 95 Room Air Room Air Intake & Output 08/06 1600 08/06 0800 08/06 0000 Intake Total 525 0 Output Total 1000 Balance -475 0 Intake, IV 525 Intake, Oral 0 Output, Urine 1000 Patient 215 lb 215 lb Weight Weight Reported by Patient Measurement Method Physical Exam General Appearance: Alert, Oriented X3, Cooperative, No Acute Distress Cardiovascular: Normal S1, Normal S2, No Murmurs Lungs: Normal Air Movement Abdomen: Soft, No Tenderness, No Hepatospenomegaly Neurological: Normal Speech, Strength at 5/5 X4 Ext, Normal Tone, Sensation Intact Current Medications: Current Medications Sig/Jessica Start time Last Medication Dose Route Stop Time Status Admin Acetaminophen 500 MG ONCE ONE 08/06 0915 DC 08/06 PO 08/06 0816 0922 Albuterol Sulfate 2 PUF Q4-6 PRN PRN 08/05 2244 AC INH Atorvastatin Calcium 20 MG 1700 08/06 1700 AC PO Clonazepam 2 MG QPM 08/05 2245 AC 08/06 PO 08/12 224 0004 Dextrose/Sodium 1,000 ML Q13H 08/06 0030 AC 08/06 Chloride IV 08/06 1329 0112 Escitalopram Oxalate 20 MG 0800 08/06 0800 AC 08/06 PO 0858 Insulin Detemir 20 UNITS BID 08/06 0900 AC 08/06 SC 0858 Insulin Detemir 20 UNITS BID 08/05 2300 DC SC Insulin Human Regular 0 Q6 08/05 2359 08/06 SC 0605 Melatonin 5 MG AT BEDTIME PRN 08/06 0030 08/06 PO 0112 Metoprolol Tartrate 100 MG BID 08/06 0932 PO Pantoprazole Sodium 40 MG DAILY 08/05 2330 AC 08/06 IV 0858 Sodium Chloride 1,000 ML DAILY 08/06 09 DC IV 08/07 0459 Sodium Chloride 1,000 ML DAILY 08/05 2300 DC 08/05 IV 08/06 0859 2322 Last 24 Hrs of Lab/Alex Results Last 24 Hrs of Labs/Mics: Laboratory Tests 08/06/17 0720: Anion Gap 13, Estimated GFR > 60, BUN/Creatinine Ratio 18.6, Troponin I < 0.01, CBC w Diff NO MAN DIFF REQ, RBC 2.85 L, MCV 87.1, MCH 29.4, MCHC 33.7, RDW 12.9 , MPV 8.4, Gran % 56.8, Lymphocytes % 32.1, Monocytes % 8.4, Eosinophils % 1.9, Basophils % 0.8, Absolute Granulocytes 2.3, Absolute Lymphocytes 1.3, Absolute Monocytes 0.3, Absolute Eosinophils 0.1, Absolute Basophils 0, Retic Count 3.08 H 08/06/17 0120: Urine Color YEL, Urine Clarity HAZY H, Urine pH 6.0, Ur Specific [place] <= 1.005, Urine Protein NEG, Urine Ketones NEG, Urine Nitrite NEG, Urine Bilirubin NEG, Urine Urobilinogen 0.2, Ur Leukocyte Esterase MOD H, Ur Microscopic SEDIMENT EXAMINED, Urine RBC 3-5, Urine WBC 15-25 H, Ur Epithelial Cells MANY H, Urine Bacteria FEW H, Urine Mucus FEW, Urine Hemoglobin TRACE-INTACT, Urine Glucose NEG 08/05/17 1730: Anion Gap 14, Estimated GFR > 60, BUN/Creatinine Ratio 23.8, Glucose 141 H, Calcium 9.6, Iron 30 L, TIBC 480, Ferritin 9.8 L, Total Bilirubin 0.5, AST 15, ALT 21, Alkaline Phosphatase 44, Troponin I < 0.01, Total Protein 6.6, Albumin 4.0, Globulin 2.6, Albumin/Globulin Ratio 1.5, Lipase 44, TSH &T3 &Free T4 Intrp 1.290, PT 12.3, INR 1.13, APTT 27, D-Dimer High Sensitivty < 200, CBC w Diff NO MAN DIFF REQ, RBC 3.11 L, MCV 87.3, MCH 29.6, MCHC 33.8, RDW 13.3, MPV 8.5, Gran % 67.6, Lymphocytes % 23.4, Monocytes % 6.8, Eosinophils % 1.6, Basophils % 0.6, Absolute Granulocytes 3.8, Absolute Lymphocytes 1.3, Absolute Monocytes 0.4 , Absolute Eosinophils 0.1, Absolute Basophils 0 Assessment/Plan Assessment: Ms Koch is a 72 yr old woman w/ a PMHx of hypertension, class III obesity, type 2 diabetes, Niki's thyroiditis breast cancer status post mastectomy hyperlipidemia, previous GI bleed, carotid stenosis (follows up with Dr. Church dx'ed 2013 <50% on the left and 50-79% on the right), vitamin B12 deficiency came to the hospital with a chief concern of increased weakness, tiredness and dyspnea for the last 1 week. Assessment and plan 1. Weakness/shortness of breath-this can be secondary due to acute on chronic anemia. Patient hemoglobin dropped from 9.2-8.4 today. Patient had normal bowel movement last night. Denies blood in it. She denies shortness of breath/ chest pain ruling out congestive heart failure. Her endoscopy and colonoscopy in May 2016 showed diverticulosis with no obvious bleeding source. She also had a PillCam which was normal. Gastroenterology on board. Patient might go for endoscopy today. Patient is n.p.o. for the same. We will continue her metoprolol, and hold her lisinopril. Continue atorvastatin, Lexapro, pantoprazole. Patient is on Levemir and Novolin. Problem List: 1. GI bleeding Pain Ratin Pain Location: none Pain Goal: Remain pain free Pain Plan: tylenol Tomorrow's Labs & Rationales: cbc,bep Maria A Pastor MD 08/06/17 1141: Attending Review Statement Attending Statement Attending MD Statement: examined this patient, discuss w/resident/PA/TREATING ENGINEER HELPER, agreed w/resident/PA/TREATING ENGINEER HELPER, discussed with family, reviewed EMR data (avail), discussed with nursing, discussed with case mgmt, reviewed images, amended to note Attending Assessment/Plan: Patient seen and examined, still feels tired. Patient is admitted with symptomatic anemia which included symptoms of feeling tired and dyspnea on exertion. She does have further drop in her H&H this morning. Vital Signs Date Time Temp Pulse Resp B/P B/P Pulse O2 O2 Flow FiO2 Mean Ox Delivery Rate 08/06 1045 84 128/50 08/06 0905 Room Air Room Air 08/06 0622 98.6 85 20 124/50 98 Room Air 08/06 0022 98.4 92 20 162/62 98 Room Air 08/06 0000 Room Air 08/05 2240 Room Air 08/05 2221 98.4 86 18 146/84 98 Room Air 08/05 2048 98.5 85 18 142/65 97 Room Air 08/05 1839 84 18 138/64 Room Air 08/05 1839 87 138/64 08/05 1707 155/65 08/05 1701 97.5 96 20 95 Room Air Room Air on exam; aox3, nad. looks pale. cv: s1,s2, rrr resp; clear abd; soft, nt, bs+ ext; no edema Laboratory Tests 08/06 08/06 0720 0120 Chemistry Sodium (137 - 145 mmol/L) 139 Potassium (3.5 - 5.1 mmol/L) 4.2 Chloride (98 - 107 mmol/L) 103 Carbon Dioxide (22 - 30 mmol/L) 23 Anion Gap (5 - 16) 13 BUN (7 - 17 mg/dL) 13 Creatinine (0.5 - 1.0 mg/dL) 0.7 Estimated GFR (>60 ml/min) > 60 BUN/Creatinine Ratio (7 - 25 %) 18.6 Troponin I (< 0.11 ng/ml) < 0.01 Hematology CBC w Diff NO MAN DIFF REQ WBC (4.8 - 10.8 /CUMM) 4.1 L RBC (4.20 - 5.40 /CUMM) 2.85 L Hgb (12.0 - 16.0 G/DL) 8.4 L Hct (37 - 47 %) 24.9 L MCV (81.0 - 99.0 FL) 87.1 MCH (27.0 - 31.0 PG) 29.4 MCHC (33.0 - 37.0 G/DL) 33.7 RDW (11.5 - 14.5 %) 12.9 Plt Count (130 - 400 /CUMM) 209 MPV (7.4 - 10.4 FL) 8.4 Gran % (42.2 - 75.2 %) 56.8 Lymphocytes % (20.5 - 51.1 %) 32.1 Monocytes % (1.7 - 9.3 %) 8.4 Eosinophils % (0 - 5 %) 1.9 Basophils % (0.0 - 2.0 %) 0.8 Absolute Granulocytes (1.4 - 6.5 /CUMM) 2.3 Absolute Lymphocytes (1.2 - 3.4 /CUMM) 1.3 Absolute Monocytes (0.10 - 0.60 /CUMM) 0.3 Absolute Eosinophils (0.0 - 0.7 /CUMM) 0.1 Absolute Basophils (0.0 - 0.2 /CUMM) 0 Retic Count (0.5 - 2.0 %) 3.08 H Urines Urine Color (YEL,AMB,STR) YEL Urine Clarity (CLEAR) HAZY H Urine pH (5.0 - 8.0) 6.0 Ur Specific [place] (1.001 - 1.035) <= 1.005 Urine Protein (NEG,<30 MG/DL) NEG Urine Ketones (NEG) NEG Urine Nitrite (NEG) NEG Urine Bilirubin (NEG) NEG Urine Urobilinogen (0.1 - 1.0 EU/dl) 0.2 Ur Leukocyte Esterase (NEG) MOD H Ur Microscopic SEDIMENT EXAMINED Urine RBC (0 - 5 /HPF) 3-5 Urine WBC (0 - 2 /HPF) 15-25 H Ur Epithelial Cells (NONE,FEW) MANY H Urine Bacteria (NEG/NONE) FEW H Urine Mucus (FEW,NONE) FEW Urine Hemoglobin (NEG) TRACE-INTACT Urine Glucose (N MG/DL) NEG 08/05 1730 Chemistry Sodium (137 - 145 mmol/L) 140 Potassium (3.5 - 5.1 mmol/L) 4.1 Chloride (98 - 107 mmol/L) 103 Carbon Dioxide (22 - 30 mmol/L) 23 Anion Gap (5 - 16) 14 BUN (7 - 17 mg/dL) 19 H Creatinine (0.5 - 1.0 mg/dL) 0.8 Estimated GFR (>60 ml/min) > 60 BUN/Creatinine Ratio (7 - 25 %) 23.8 Glucose (65 - 99 mg/dL) 141 H Calcium (8.4 - 10.2 mg/dL) 9.6 Iron (37 - 170 ug/dL) 30 L TIBC (265 - 497 ug/dL) 480 Ferritin (11.1 - 264 ng/mL) 9.8 L Total Bilirubin (0.2 - 1.3 mg/dL) 0.5 AST (14 - 36 U/L) 15 ALT (9 - 52 U/L) 21 Alkaline Phosphatase (<127 U/L) 44 Troponin I (< 0.11 ng/ml) < 0.01 Total Protein (6.3 - 8.2 g/dL) 6.6 Albumin (3.5 - 5.0 g/dL) 4.0 Globulin (1.9 - 4.2 gm/dL) 2.6 Albumin/Globulin Ratio (1.1 - 2.2 %) 1.5 Lipase (23 - 300 U/L) 44 TSH &T3 &Free T4 Intrp (0.270 - 4.20 uIU/mL) 1.290 Coagulation PT (9.4 - 12.5 SEC) 12.3 INR (0.90 - 1.19) 1.13 APTT (25 - 37 SEC) 27 D-Dimer High Sensitivty (0 - 243 ng/ml) < 200 Hematology CBC w Diff NO MAN DIFF REQ WBC (4.8 - 10.8 /CUMM) 5.6 RBC (4.20 - 5.40 /CUMM) 3.11 L Hgb (12.0 - 16.0 G/DL) 9.2 L Hct (37 - 47 %) 27.1 L MCV (81.0 - 99.0 FL) 87.3 MCH (27.0 - 31.0 PG) 29.6 MCHC (33.0 - 37.0 G/DL) 33.8 RDW (11.5 - 14.5 %) 13.3 Plt Count (130 - 400 /CUMM) 242 MPV (7.4 - 10.4 FL) 8.5 Gran % (42.2 - 75.2 %) 67.6 Lymphocytes % (20.5 - 51.1 %) 23.4 Monocytes % (1.7 - 9.3 %) 6.8 Eosinophils % (0 - 5 %) 1.6 Basophils % (0.0 - 2.0 %) 0.6 Absolute Granulocytes (1.4 - 6.5 /CUMM) 3.8 Absolute Lymphocytes (1.2 - 3.4 /CUMM) 1.3 Absolute Monocytes (0.10 - 0.60 /CUMM) 0.4 Absolute Eosinophils (0.0 - 0.7 /CUMM) 0.1 Absolute Basophils (0.0 - 0.2 /CUMM) 0 A/P: 72 y/o F with pmh sig for hypertension, hyperlipidemia, diabetes, breast cancer status post mastectomy, normocytic anemia is admitted with symptomatic anemia likely secondary to acute blood loss anemia. Stool guaiac is positive. Patient does have further drop in her H&H today. Patient currently nothing by mouth. GI has been consulted. Recommend continuing the IV PPI for now. Continue gentle IV hydration. We'll continue to monitor H&H. Patient should have 2 large-bore IV lines and should be typed and crossed. She does take dual antiplatelet therapy but denies the use of any other NSAIDs. Manpreet/diuretic held. DVT px: ALPS. D/W son at bedside.
--- NOTE | 2017-08-06 07:28 | PN- Student ---
Subjective Subjective: Today- No acute events overnight. Seen and examined this morning. Patient son's at bed side. Patient feeling better but still weak.COmplains of abd tenderness. Patient is NPO for a endoscopy today. Denied headahce, palpitation, SOB. HPI: 72 y/o F with PMHx of HTN, HLD, DM, breast cancer s/p ,astectomy, anemia who presented to the ED with complains of weakness, tireness, and SOB for about a week prior to admission. Patient noted similar symptoms of thos back in march 2016, where she was treated with 2 units of blood for symptomatic anemia. During that admission patient had a colonoscopy that showed no active bleeding but internal hemorroids. Positive pertinent for: lightheaderness and palpitation with ambulation, 3-4 black tarry stools PSHx: cholecystectomy, hernia, masectomy (2002), appendectomy ROS: denied fever, diaphoresis, night sweat, weight change, cough, Chest Pain, urinary abnormality Social Hx: -Smoking: Less than pack a day, and quit more than 40 years ago -Alcohol: Denied -Rec Drugs: Denied Objective Objective: Vital Signs Date Time Temp Pulse Resp B/P B/P Pulse O2 O2 Flow FiO2 Mean Ox Delivery Rate 08/06 0622 98.6 85 20 124/50 98 Room Air 08/06 0022 98.4 92 20 162/62 98 Room Air 08/06 0000 Room Air 08/05 2240 Room Air 08/05 2221 98.4 86 18 146/84 98 Room Air 08/05 2048 98.5 85 18 142/65 97 Room Air 08/05 1839 84 18 138/64 Room Air 08/05 1839 87 138/64 08/05 1707 155/65 08/05 1701 97.5 96 20 95 Room Air Room Air Intake & Output 08/06 1600 08/06 0800 08/06 0000 Intake Total 525 0 Output Total 1000 Balance -475 0 Intake, IV 525 Intake, Oral 0 Output, Urine 1000 Patient 215 lb 215 lb Weight Weight Reported by Patient Measurement Method PE: General: alert and oriented HEENT: NCAT, anicteric sclera, moist oral mucosa, no exudates CVS: regular rate and rythm, normal S1 and S2 Lungs: symetrical chesdt expansion, clear breath sounds, no added sounds Abdomen: present bowel sounds, mildlytender, nondistended Extermities: palpable pulses, no edema Results Results: Laboratory Tests 08/06/17 0720: Anion Gap 13, Estimated GFR > 60, BUN/Creatinine Ratio 18.6, Troponin I < 0.01, CBC w Diff NO MAN DIFF REQ, RBC 2.85 L, MCV 87.1, MCH 29.4, MCHC 33.7, RDW 12.9 , MPV 8.4, Gran % 56.8, Lymphocytes % 32.1, Monocytes % 8.4, Eosinophils % 1.9, Basophils % 0.8, Absolute Granulocytes 2.3, Absolute Lymphocytes 1.3, Absolute Monocytes 0.3, Absolute Eosinophils 0.1, Absolute Basophils 0, Retic Count 3.08 H 08/06/17 0120: Urine Color YEL, Urine Clarity HAZY H, Urine pH 6.0, Ur Specific [place] <= 1.005, Urine Protein NEG, Urine Ketones NEG, Urine Nitrite NEG, Urine Bilirubin NEG, Urine Urobilinogen 0.2, Ur Leukocyte Esterase MOD H, Ur Microscopic SEDIMENT EXAMINED, Urine RBC 3-5, Urine WBC 15-25 H, Ur Epithelial Cells MANY H, Urine Bacteria FEW H, Urine Mucus FEW, Urine Hemoglobin TRACE-INTACT, Urine Glucose NEG 08/05/17 1730: Anion Gap 14, Estimated GFR > 60, BUN/Creatinine Ratio 23.8, Glucose 141 H, Calcium 9.6, Iron 30 L, TIBC 480, Ferritin 9.8 L, Total Bilirubin 0.5, AST 15, ALT 21, Alkaline Phosphatase 44, Troponin I < 0.01, Total Protein 6.6, Albumin 4.0, Globulin 2.6, Albumin/Globulin Ratio 1.5, Lipase 44, TSH &T3 &Free T4 Intrp 1.290, PT 12.3, INR 1.13, APTT 27, D-Dimer High Sensitivty < 200, CBC w Diff NO MAN DIFF REQ, RBC 3.11 L, MCV 87.3, MCH 29.6, MCHC 33.8, RDW 13.3, MPV 8.5, Gran % 67.6, Lymphocytes % 23.4, Monocytes % 6.8, Eosinophils % 1.6, Basophils % 0.6, Absolute Granulocytes 3.8, Absolute Lymphocytes 1.3, Absolute Monocytes 0.4 , Absolute Eosinophils 0.1, Absolute Basophils 0 Assessment/Plan Assessment: 72 y/o F with PMhx of HTN, HLD, anemia presented with weakness, tireness and SOB. Patient noted black tarry stool for three day prior to admission. Patient is taking clopidogrel at home. Vitals sign are stable. PE and CTA did not demostrated an active bleeding. Labs at the time of admission are pertinent for anemia of 9.2 (baseline of 12.0 in Nov 2016) and hct of 27.1. No thrombocytopenia or leukocytosis. Prior colonoscopy (back in 05/2016) demostrated left- diverticulosis, patchy erythematous change sin the cecum not consistent with AVM, and small internal hemorrhoids. Based on History/PE, Labs and imagine, the source may be from GI. At this point lower GI bleed is more likely , but upper GI cannot be excluded due to tarry black stoo. DDx include diverticular bleed, hemorrhoidal bleed, gastritis, PUD, malignancy, nutritional def. MCV of 87 in the setting of anemia make unlikely folate and B12 unlikely. Anemia of chronic disease and iron def. is more likely. Ferritin is low and iron is low, iron def is top in the ddx, specially if GI loss. Plan: Plan: GI bleed leading to iron def in the setting of dual antiplatelet at home: -Patient admitted to [facility] for man agement of symptomatic anemia -Endo: mild to moderate gastritis, random biopsies of the antrum and duodenum sent to pathology -[place]: same as before in March 2016 -Monitor vitals -T&C with a goal of Hgb > 8.0 -F/U CBC and Chemistry -Hold dual antiplatelet (plavix and aspirin) -Resume Metoprolol -F/U recs -NPO if any procedure is recommended, if not clear liquid diet and advance as tolerated -Cont. IV hydration if low PO intake -Encourage ambulation DVT ppx with SCD for the moment Full code Random biopsies were obtained from the second portion of the duodenum and were sent to pathology for further evaluation.
[2017-08-06 09:25] LABS: ABSOLUTE BASOPHIL COUNT 0 /CUMM (0.0-0.2); ABSOLUTE EOSINOPHIL COUNT 0.1 /CUMM (0.0-0.7); ABSOLUTE GRANULOCYTE CT 2.3 /CUMM (1.4-6.5); ABSOLUTE LYMPH COUNT 1.3 /CUMM (1.2-3.4); ABSOLUTE MONOCYTE COUNT 0.3 /CUMM (0.10-0.60); BASOPHIL % 0.8 % (0.0-2.0); EOSINOPHIL % 1.9 % (0-5); GRANULOCYTE % 56.8 % (42.2-75.2); HEMATOCRIT 24.9 % (37-47); MEAN CORPUSCULAR HGB 29.4 PG (27.0-31.0); MEAN CORPUSCULAR HGB CONC 33.7 G/DL (33.0-37.0); MEAN CORPUSCULAR VOLUME 87.1 FL (81.0-99.0); MEAN PLATELET VOLUME 8.4 FL (7.4-10.4); PLATELET COUNT 209 /CUMM (130-400); RBC DISTRIBUTION WIDTH 12.9 % (11.5-14.5); RED BLOOD CELL CT 2.85 /CUMM (4.20-5.40); WHITE BLOOD CELL COUNT 4.1 /CUMM (4.8-10.8)
--- NOTE | 2017-08-06 10:58 | Patient Discharge Instructions ---
Discharge Instructions General Discharge Information You were seen/treated for: GI BLEED Special Instructions: Please follow-up with your primary care provider/hydrogeology professor within 1-2 weeks of discharge. Follow-up CBC in 4-6 weeks. Please follow with a corporate legal intern within 1-2 weeks of discharge. Please follow-up with your primary care provider regarding annual mammogram Diet Continue normal diet: No Recommended Diet: Diabetic Activity Full Activity/No Limits: No Activity Self Limited: Yes Acute Coronary Syndrome Inclusion Criteria At DC or during hospital stay patient has or had the following: ACS DIAGNOSIS No Discharge Core Measures Meds if any: Prescribed or Continued at Discharge Meds if any: NOT Prescribed or Continued at Discharge Congestive Heart Failure Inclusion Criteria At DC or during hospital stay patient has or had the following: CHF DIAGNOSIS No Discharge Core Measures Meds if any: Prescribed or Continued at Discharge Meds if any: NOT Prescribed or Continued at Discharge Cerebrovascular accident Inclusion Criteria At DC or during hospital stay patient has or had the following: CVA/TIA Diagnosis No Discharge Core Measures Meds if any: Prescribed or Continued at Discharge Meds if any: NOT Prescribed or Continued at Discharge Venous thromboembolism Inclusion Criteria VTE Diagnosis No VTE Type NONE VTE Confirmed by (Test) NONE Discharge Core Measures - Per Current guidelines, there needs to be overlap - treatment for the first 5 days of Warfarin therapy. - If discharged on Warfarin prior to 5 days of - overlap therapy, the patient will need to be - assessed for post discharge needs including - *Post discharge parental anticoagulation - *Warfarin and/or parental anticoagulation education - *Follow up date to check INR post discharge At least 5 days overlap therapy as Inpatient No Meds if any: Prescribed or Continued at Discharge Note: Overlap Therapy is Warfarin and Anticoagulant Meds if any: NOT Prescribed or Continued at Discharge
[2017-08-06 14:40] VITALS: BP 110/75
--- NOTE | 2017-08-06 14:44 | Cons- Gastroenterology ---
General Information and HPI Consulting Request Date of Consult: 08/06/17 Requested By: Maria A Pastor MD Reason for Consult: Anemia, guaiac positive stool. Source of Information: patient, old records Exam Limitations: no limitations History of Present Illness: Ms. Koch is a 72 year old female with multiple medical problems including htn, inc chol and DM who presented to last night with complaints of worsening lilghtheadeness and falls and worsening anemia noted by her PCP. She notes that over the past few weeks she has been feeling lightheaded and has been having falls at home. She has not had any syncopal episodes or chest pain. She notes that she feels like she did when she was anemic last year and she underewent an endoscopic work up that showed diverticulosis, but was otherwise unremarkable as was a follow up pill cam. She had been doing well on supplemental iron and omeprazole that she was put on for gastritis appreciated on the endoscopic studies. She notes that she had some black loose stool earlier in the week, which hasn't persisted and she notes her stools have been brown for the past few days. She has not had any hematochezia and she also denies any heartburn, dysphagia or vomiting. Since admission she has been hemodynamically stable and has not had any overt gi bleeding, but she was noted to have guaiac positive stool. Allergies/Medications Allergies: Coded Allergies: No Known Allergies (08/05/17) Home Med List: Albuterol Sulfate (Proair Hfa) 90 MCG HFA.AER.AD 2 PUF INH AD PRN RESP. ( Reported) Ascorbic Acid (Vitamin C) 500 MG TAB.CHEW 1 TAB PO TID SUPPLEMENTATION . Aspirin (Ecotrin*) 81 MG TABLET.DR 1 TAB PO DAILY SUPPLEMENT (Reported) Clonazepam 2 MG TABLET 1 TAB PO QPM SLEEP (Reported) Clopidogrel Bisulfate (Clopidogrel) 75 MG TABLET 1 TAB PO DAILY BLOOD THINNER (Reported) Cyanocobalamin (Vitamin B-12) (Cyanocobalamin Injection) 1,000 MCG/ML VIAL 1 ML IM Q30D SUPPLEMENT (Reported) Ergocalciferol (Vitamin D2) (Vitamin D2) 50,000 UNIT CAPSULE 1 CAP PO Q3W SUPPLEMENT (Reported) Escitalopram Oxalate 20 MG TABLET 1 TAB PO DAILY DEPRESSION (Reported) Exenatide Microspheres (Bydureon Pen) 2 MG/0.65 ML PEN.INJCTR DM (Reported) Ferrous Sulfate 325 MG (65 MG IRON) TABLET. 325 MG PO TID anemia . Hydrocodone/Acetaminophen (Hydrocodon-Acetaminophen 5-325) 5 MG-325 MG TABLET 1 TAB PO BIDP PRN PAIN (Reported) Insulin Glargine,Hum.rec.anlog (Lantus Solostar) 100 UNIT/ML (3 ML) INSULN.PEN 60 UNIT SC QPM DM (Reported) Insulin Lispro (Humalog Kwikpen U-100) 100 UNIT/ML INSULN.PEN DM (Reported) Lisinopril/Hydrochlorothiazide (Lisinopril-Hctz 20-12.5 MG Tab) 20 MG-12.5 MG TABLET 1 TAB PO DAILY BP (Reported) Lovastatin 40 MG TABLET 1 TAB PO DAILY CHOLESTEROL (Reported) with food Metformin HCl (Metformin HCl ER) 500 MG [id number] 1 TAB PO BID DM (Reported) Metoprolol Tartrate 100 MG TABLET 1 TAB PO BID HEART/BP (Reported) Pantoprazole Sodium (Protonix) 40 MG TABLET. 1 TAB PO DAILY gi prophylaxis . Current Medications: Current Medications Sig/Jessica Start time Last Medication Dose Route Stop Time Status Admin Acetaminophen 500 MG ONCE ONE 08/06 0915 DC 08/06 PO 08/06 0916 0922 Albuterol Sulfate 2 PUF Q4-6 PRN PRN 08/05 2245 AC INH Atorvastatin Calcium 20 MG 1700 08/06 1700 AC PO Clonazepam 2 MG QPM 08/05 2245 AC 08/06 PO 08/12 2244 0004 Dextrose/Sodium 1,000 ML Q13H 08/06 0030 DC 08/06 Chloride IV 08/06 1329 0112 Escitalopram Oxalate 20 MG 0800 08/06 0800 AC 08/06 PO 0858 Insulin Detemir 20 UNITS BID 08/06 0900 AC 08/06 SC 0858 Insulin Detemir 20 UNITS BID 08/05 2300 DC SC Insulin Human Regular 2 UNITS .STK-MED ONE 08/06 0603 DC IV 08/06 0604 Insulin Human Regular 0 Q6 08/05 2359 AC 08/06 SC 1324 Melatonin 5 MG AT BEDTIME PRN 08/06 0030 AC 08/06 PO 0112 Metoprolol Tartrate 100 MG BID 08/06 0932 AC 08/06 PO 1045 Pantoprazole Sodium 40 MG DAILY 08/05 2330 AC 08/06 IV 0858 Sodium Chloride 1,000 ML DAILY 08/06 0900 DC IV 08/07 0459 Sodium Chloride 1,000 ML DAILY 08/05 2300 DC 08/05 IV 08/06 0859 2322 Past History Travel History Traveled to [place] past 21 day No Medical History Blood Transfusion Hx: No Neurological: NONE EENT: NONE Cardiovascular: hypertension, hyperlipidemia Gastrointestinal: GI BLEED Hepatic: NONE Renal: NONE Musculoskeletal: NONE Psychiatric: NONE Endocrine: diabetes Blood Disorders: anemia Cancer(s): breast cancer LOOM DOFFER/Reproductive: NONE Surgical History Surgical History: non-contributory, masectomy Psychosocial History Where Do You Live? Home Services at Home: None Smoking Status: Former Smoker ETOH Use: denies use Illicit Drug Use: denies illicit drug use Review of Systems Review of Systems Constitutional: Reports: malaise, weakness. Denies: diaphoresis, fever. EENTM: Denies: no symptoms. Cardiovascular: Denies: chest pain, edema, peripheral edema. Respiratory: Reports: short of breath. Denies: cough, sputum production, stridor. GI: Denies: see HPI. Genitourinary: Denies: no symptoms. Musculoskeletal: Denies: no symptoms. Skin: Denies: no symptoms. Neurological/Psychological: Reports: ataxia, weakness. Hematologic/Endocrine: Denies: bleeding. Immunologic/Allergic: Denies: no symptoms. All Other Systems: Reviewed and Negative Exam & Diagnostic Data Vital Signs and I&O Vital Signs Date Time Temp Pulse Resp B/P B/P Pulse O2 O2 Flow FiO2 Mean Ox Delivery Rate 08/06 1440 98.0 77 20 110/75 99 Room Air 08/06 1045 84 128/50 08/06 0905 Room Air Room Air 08/06 0622 98.6 85 20 124/50 98 Room Air 08/06 0022 98.4 92 20 162/62 98 Room Air 08/06 0000 Room Air 08/05 2240 Room Air 08/05 2220 98.4 86 18 146/84 98 Room Air 08/05 2048 98.5 85 18 142/65 97 Room Air 08/05 1839 84 18 138/64 Room Air 08/05 1839 87 138/64 08/05 1707 155/65 08/05 1701 97.5 96 20 95 Room Air Room Air Intake & Output 08/06 04008/04 0400 Intake Total 525 0 Output Total 1000 Balance -475 0 Intake, IV 525 Intake, Oral 0 Output, Urine 1000 Patient 215 lb 215 lb Weight Weight Reported by Patient Measurement Method Physical Exam General Appearance: well developed/nourished, no apparent distress, alert, comfortable, obese Head: atraumatic, normal appearance Eyes: Bilateral: normal appearance. Ears, Nose, Throat: normal pharynx, normal ENT inspection, hearing grossly normal Neck: normal inspection, supple, full range of motion Respiratory: normal breath sounds, chest non-tender, no respiratory distress Cardiovascular: regular rate/rhythm Gastrointestinal: normal bowel sounds, soft, non-tender, no organomegaly Rectal: deferred, guaiac positive per nursing (brown) Back: normal inspection, normal range of motion Extremities: normal inspection, normal capillary refill, normal range of motion Skin: intact, normal color, warm/dry Results Pertinent Lab Results: Laboratory Tests 08/06 08/06 0720 0120 Chemistry Sodium (137 - 145 mmol/L) 139 Potassium (3.5 - 5.1 mmol/L) 4.2 Chloride (98 - 107 mmol/L) 103 Carbon Dioxide (22 - 30 mmol/L) 23 Anion Gap (5 - 16) 13 BUN (7 - 17 mg/dL) 13 Creatinine (0.5 - 1.0 mg/dL) 0.7 Estimated GFR (>60 ml/min) > 60 BUN/Creatinine Ratio (7 - 25 %) 18.6 Troponin I (< 0.11 ng/ml) < 0.01 Hematology CBC w Diff NO MAN DIFF REQ WBC (4.8 - 10.8 /CUMM) 4.1 L RBC (4.20 - 5.40 /CUMM) 2.85 L Hgb (12.0 - 16.0 G/DL) 8.4 L Hct (37 - 47 %) 24.9 L MCV (81.0 - 99.0 FL) 87.1 MCH (27.0 - 31.0 PG) 29.4 MCHC (33.0 - 37.0 G/DL) 33.7 RDW (11.5 - 14.5 %) 12.9 Plt Count (130 - 400 /CUMM) 209 MPV (7.4 - 10.4 FL) 8.4 Gran % (42.2 - 75.2 %) 56.8 Lymphocytes % (20.5 - 51.1 %) 32.1 Monocytes % (1.7 - 9.3 %) 8.4 Eosinophils % (0 - 5 %) 1.9 Basophils % (0.0 - 2.0 %) 0.8 Absolute Granulocytes (1.4 - 6.5 /CUMM) 2.3 Absolute Lymphocytes (1.2 - 3.4 /CUMM) 1.3 Absolute Monocytes (0.10 - 0.60 /CUMM) 0.3 Absolute Eosinophils (0.0 - 0.7 /CUMM) 0.1 Absolute Basophils (0.0 - 0.2 /CUMM) 0 Retic Count (0.5 - 2.0 %) 3.08 H Urines Urine Color (YEL,AMB,STR) YEL Urine Clarity (CLEAR) HAZY H Urine pH (5.0 - 8.0) 6.0 Ur Specific [place] (1.001 - 1.035) <= 1.005 Urine Protein (NEG,<30 MG/DL) NEG Urine Ketones (NEG) NEG Urine Nitrite (NEG) NEG Urine Bilirubin (NEG) NEG Urine Urobilinogen (0.1 - 1.0 EU/dl) 0.2 Ur Leukocyte Esterase (NEG) MOD H Ur Microscopic SEDIMENT EXAMINED Urine RBC (0 - 5 /HPF) 3-5 Urine WBC (0 - 2 /HPF) 15-25 H Ur Epithelial Cells (NONE,FEW) MANY H Urine Bacteria (NEG/NONE) FEW H Urine Mucus (FEW,NONE) FEW Urine Hemoglobin (NEG) TRACE-INTACT Urine Glucose (N MG/DL) NEG 08/05 1730 Chemistry Sodium (137 - 145 mmol/L) 140 Potassium (3.5 - 5.1 mmol/L) 4.1 Chloride (98 - 107 mmol/L) 103 Carbon Dioxide (22 - 30 mmol/L) 23 Anion Gap (5 - 16) 14 BUN (7 - 17 mg/dL) 19 H Creatinine (0.5 - 1.0 mg/dL) 0.8 Estimated GFR (>60 ml/min) > 60 BUN/Creatinine Ratio (7 - 25 %) 23.8 Glucose (65 - 99 mg/dL) 141 H Calcium (8.4 - 10.2 mg/dL) 9.6 Iron (37 - 170 ug/dL) 30 L TIBC (265 - 497 ug/dL) 480 Ferritin (11.1 - 264 ng/mL) 9.8 L Total Bilirubin (0.2 - 1.3 mg/dL) 0.5 AST (14 - 36 U/L) 15 ALT (9 - 52 U/L) 21 Alkaline Phosphatase (<127 U/L) 44 Troponin I (< 0.11 ng/ml) < 0.01 Total Protein (6.3 - 8.2 g/dL) 6.6 Albumin (3.5 - 5.0 g/dL) 4.0 Globulin (1.9 - 4.2 gm/dL) 2.6 Albumin/Globulin Ratio (1.1 - 2.2 %) 1.5 Lipase (23 - 300 U/L) 44 TSH &T3 &Free T4 Intrp (0.270 - 4.20 uIU/mL) 1.290 Coagulation PT (9.4 - 12.5 SEC) 12.3 INR (0.90 - 1.19) 1.13 APTT (25 - 37 SEC) 27 D-Dimer High Sensitivty (0 - 243 ng/ml) < 200 Hematology CBC w Diff NO MAN DIFF REQ WBC (4.8 - 10.8 /CUMM) 5.6 RBC (4.20 - 5.40 /CUMM) 3.11 L Hgb (12.0 - 16.0 G/DL) 9.2 L Hct (37 - 47 %) 27.1 L MCV (81.0 - 99.0 FL) 87.3 MCH (27.0 - 31.0 PG) 29.6 MCHC (33.0 - 37.0 G/DL) 33.8 RDW (11.5 - 14.5 %) 13.3 Plt Count (130 - 400 /CUMM) 242 MPV (7.4 - 10.4 FL) 8.5 Gran % (42.2 - 75.2 %) 67.6 Lymphocytes % (20.5 - 51.1 %) 23.4 Monocytes % (1.7 - 9.3 %) 6.8 Eosinophils % (0 - 5 %) 1.6 Basophils % (0.0 - 2.0 %) 0.6 Absolute Granulocytes (1.4 - 6.5 /CUMM) 3.8 Absolute Lymphocytes (1.2 - 3.4 /CUMM) 1.3 Absolute Monocytes (0.10 - 0.60 /CUMM) 0.4 Absolute Eosinophils (0.0 - 0.7 /CUMM) 0.1 Absolute Basophils (0.0 - 0.2 /CUMM) 0 Imaging/Other Studies: Colonoscopy Procedure Medical History: unchanged (see demetria ov note 04/01) Mental Status: alert/oriented Heart/Lung Eval Prior to Sedation: within normal limits Candidate for Sedation? Yes Date of Last Colonoscopy: 2006 Procedure Date: 06/10/16 Procedure Type: colonoscopy Pump House Engineer: ANUJA COPELAND MD ASA Classification: III Indications: Unexplained iron deficiency anemia. Guaiac positive stool. Instrument (Colonoscope): single channel Meds Received: ESTEFANIA Patient's Tolerance: good Complications: none Extent Reached: cecum Prep: good Procedure: After getting written informed consent the patient was placed in the left lateral decubitus position with pulse oximetry, cardiac monitoring, and supplemental oxygen was given. IV sedation was given until the desired effect was achieved. A rectal exam was performed which was normal. A high definition variable stiffness Olympus colonoscope was then inserted into the anus and advanced to the cecum with little difficulty. Retroflexed views were obtained and photodocumentation was obtained. Close inspection of the colonic mucosa was performed on insertion and withdrawal of the colonoscope with a withdrawal time that was adequate in length to closely inspect all folds and de la cruz of the colon. Findings: There were several scattered diverticula appreciated in the sigmoid colon and in the descending colon. There were some patchy erythematous changes in the cecum which were not consistent in appearance with AVMs. The remainder of the visualized colonic mucosa was grossly unremarkable. There were no polyps, masses, or ulcers appreciated. Retroflexed views in the rectum revealed small internal hemorrhoids. Impression: 1. Left-sided diverticulosis. 2. Patchy erythematous changes in the cecum not consistent with AVMs. 3. Small internal hemorrhoids. Endoscopy Procedure Medical History: unchanged (see demetria ov note 04/01) Mental Status: alert/oriented Heart/Lung Eval Prior to Sedation: within normal limits Candidate for Sedation? Yes Procedure Date: 06/10/16 Procedure Type: EGD w/biopsy Pump House Engineer: ANUJA COPELAND MD ASA Classification: III Indications: Unexplained iron deficiency anemia. Instrument: diagnostic gastroscope Meds Received: MAC Patient's Tolerance: good Complications: none Extent Reached: second part of duodenum Procedure: After getting written informed consent the patient was placed in the left lateral decubitus position with pulse oximetry, cardiac monitoring, and supplemental oxygen given. A bite block was inserted and IV sedation was given until the desired effect was achieved. A high definition upper Olympus endoscope was then inserted into the mouth and advanced to the second portion of the duodenum with little difficulty. Retroflexed views and photodocumentation was obtained. Findings: Esophagus: The esophageal mucosa was grossly normal appearance and there was a normal-appearing Z line at 37 cm from the incisors. Stomach: The gastric mucosa was grossly normal in appearance. There were no ulcers, erosions, or masses appreciated. Distention and peristalsis of the stomach appeared normal. Retroflexed views were normal and did not reveal a significant hiatal hernia. Random biopsies were obtained from the antrum with cold biopsy forceps and were sent to pathology for further evaluation. Duodenum: The duodenal bulb, sweep, and folds were grossly normal in appearance. Random biopsies were obtained from the second portion of the duodenum and were sent to pathology for further evaluation. Impression: 1. Grossly normal upper endoscopy status post random biopsies of the stomach and small bowel. A. DUODENUM, MULTIPLE BIOPSIES: BENIGN DUODENAL MUCOSA. NEGATIVE FOR SIGNIFICANT BLUNTING OF VILLI. B. ANTRUM, STOMACH, MULTIPLE BIOPSIES: MILD TO MODERATE CHRONIC ANTRAL GASTRITIS. NEGATIVE FOR ACUTE ACTIVITY AND INTESTINAL METAPLASIA. GIEMSA STAIN IS NEGATIVE FOR HELICOBACTER ORGANISMS. Assessment/Plan Assessment/Recommendations: Assessment: Ms. Koch is a 72-year-old female with multiple medical problems who was admitted with recurrent anemia of uncertain etiology. She does have guaiac positive stool and reports black tarry stool earlier in the week so peptic ulcer disease should be ruled out, however as she is without any dyspeptic symptoms and has maintained herself on an oral PPI I feel this is less likely. She underwent an extensive workup for anemia about 1 year ago which was unremarkable and included a small bowel PillCam which did not reveal any small bowel bleeding or small bowel AVMs. In light of her complaints of having black tarry stool earlier in the week I will arrange for a diagnostic push enteroscopy to look for a source of her recent blood loss, but if this is negative consideration should then be given to investigate extraintestinal sources of anemia. Recommendations: 1. Keep NPO for a diagnostic/therapeutic push enteroscopy to be performed later today. 2. Continue oral PPI for now. 3. Would avoid NSAIDs. 4. Follow CBCs and transfuse as needed to keep her hemoglobin greater than 7 or as per cardiology recommendations. 5. Would consider obtaining a hematology consult to investigate for extraintestinal sources of anemia. I will continue to follow this patient and make further recommendations based on her clinical course and results of the push enteroscopy. Problem List: 1. Anemia 2. GI bleeding 3. Symptomatic anemia 4. YASMINE (iron deficiency anemia) Copies To: Cynthia TRUJILLO,Kaitlin Hercules. Consult Acknowledgment - Thank you for your consult request.
--- NOTE | 2017-08-06 16:09 | Proc Note Endoscopy ---
Endoscopy Procedure Medical History: unchanged (see [facility] consult) Mental Status: alert/oriented Heart/Lung Eval Prior to Sedation: within normal limits Candidate for Sedation? Yes Procedure Date: 08/06/17 Procedure Type: push enteroscopy with biopsy Cup Trimming Machine Operator: Jericho Keys MD ASA Classification: III Indications: Recurrent anemia with guaiac positive stool and reports of melena. Instrument: diagnostic gastroscope, pediatric colonoscope Meds Received: MAC Patient's Tolerance: good Complications: none Extent Reached: mid jejunum Procedure: After getting written informed consent the patient was placed in the left lateral decubitus position with pulse oximetry, cardiac monitoring, and supplemental oxygen given. A bite block was inserted and IV sedation was given until the desired effect was achieved. A high definition upper Olympus endoscope was then inserted into the mouth and advanced to the mid jejunum with little difficulty. Retroflexed views and photodocumentation was obtained. Findings: Esophagus: The esophageal mucosa was grossly normal in appearance and there was a normal-appearing Z line at 40 cm from the incisors. Stomach: The gastric mucosa was diffusely atrophic in appearance and there was one 4 mm benign-appearing nodule in the antrum which was biopsied and essentially removed with cold biopsy forceps and was sent to pathology for further evaluation. There also a few 3-4 mm sessile polyps in the body and fundus of the stomach consistent in appearance with fundic gland polyps. One of the polyps was sampled cold biopsy forceps and was sent to pathology for further evaluation. Retroflexed views were normal did not reveal significant hiatal hernia. Duodenum: The duodenal bulb, sweep, and folds were grossly normal appearance. Jejunum: The jejunal mucosa was normal in appearance with normal-appearing villi. There were no AVMs or ulcers appreciated within the small bowel and there was bile appreciated throughout to the mid jejunum. Impression: 1. Benign 4 mm antral nodule status post biopsies. 2. Fundic gland polyps status post biopsies. 3. No active bleeding or source of anemia appreciated to the mid jejunum. Recommendations: 1. Her diet should be advanced as tolerated. 2. She should be restarted on oral iron supplementation. 3. She should avoid NSAIDs. 4. Would change her back to oral PPI for GI prophylaxis. 5. GI should be notified for signs of overt GI bleeding. 6. Would obtain a hematology consult to investigate for extraintestinal source of anemia. CC: Cynthia TRUJILLO,Kaitlin Jenkins
[2017-08-06 16:25] VITALS: BP 138/58
[2017-08-06 20:28] VITALS: BP 122/62
[2017-08-06 20:56] VITALS: BP 130/64
[2017-08-06 23:17] LABS: ABSOLUTE BASOPHIL COUNT 0 /CUMM (0.0-0.2); ABSOLUTE EOSINOPHIL COUNT 0.1 /CUMM (0.0-0.7); ABSOLUTE GRANULOCYTE CT 2.8 /CUMM (1.4-6.5); ABSOLUTE LYMPH COUNT 1.4 /CUMM (1.2-3.4); ABSOLUTE MONOCYTE COUNT 0.5 /CUMM (0.10-0.60); BASOPHIL % 0.6 % (0.0-2.0); GRANULOCYTE % 58.6 % (42.2-75.2); HEMATOCRIT 25.9 % (37-47); MEAN CORPUSCULAR HGB 29.1 PG (27.0-31.0); MEAN CORPUSCULAR HGB CONC 33.2 G/DL (33.0-37.0); MEAN CORPUSCULAR VOLUME 87.6 FL (81.0-99.0); MEAN PLATELET VOLUME 8.2 FL (7.4-10.4); PLATELET COUNT 243 /CUMM (130-400); RBC DISTRIBUTION WIDTH 13.2 % (11.5-14.5); RED BLOOD CELL CT 2.96 /CUMM (4.20-5.40); WHITE BLOOD CELL COUNT 4.8 /CUMM (4.8-10.8)
[2017-08-07 05:58] VITALS: BP 118/58
--- NOTE | 2017-08-07 07:13 | PN- Housestaff ---
Subjective Follow-up For: gi bleed Subjective: Patient seen and examined at bedside. No overnight events. Patient denies bloody bowel movement, nausea, vomiting, abdominal pain. Review of Systems Constitutional: Reports: no symptoms, see HPI. Objective Last 24 Hrs of Vital Signs/I&O Vital Signs Date Time Temp Pulse Resp B/P B/P Pulse O2 O2 Flow FiO2 Mean Ox Delivery Rate 08/07 0848 73 118/58 08/07 0558 97.9 73 18 118/58 93 Room Air 08/07 2055 98.1 75 18 130/64 98 Room Air 08/06 2054 75 130/64 08/07 2027 98.2 68 16 122/62 98 Nasal 2.0L Cannula 08/06 162 97.9 78 20 138/58 95 Room Air Intake & Output 08/07 1600 08/07 0800 08/07 0000 Intake Total 120 200 Output Total 500 400 Balance -380 -200 Intake, Oral 120 200 Output, Urine 500 400 Patient 215 lb Weight Physical Exam General Appearance: Alert, Oriented X3, Cooperative, No Acute Distress Cardiovascular: Regular Rate, Normal S1, Normal S2, No Murmurs Lungs: Clear to Auscultation Abdomen: Normal Bowel Sounds, Soft, No Tenderness Neurological: Strength at 5/5 X4 Ext, Normal Tone, Sensation Intact Extremities: No Edema Current Medications: Current Medications Sig/Jessica Start time Last Medication Dose Route Stop Time Status Admin Acetaminophen 650 MG ONCE ONE 08/06 2014 DC 08/06 PO 08/06 Albuterol Sulfate 2 PUF Q4-6 PRN PRN 08/05 2244 DCD INH Atorvastatin Calcium 20 MG 1700 08/06 1700 DCD 08/06 PO 1745 Chlorhexidine 1 GM .STK-MED ONE 08/07 0733 DC Gluconate TOP 08/07 0734 Clonazepam 2 MG QPM 08/05 2244 DCD 08/06 PO 08/13 2243 203 Dextrose/Sodium 1,000 ML Q13H 08/06 1500 DC 08/06 Chloride IV 08/07 0359 1641 Escitalopram Oxalate 20 MG 0800 08/06 0800 DCD 08/07 PO 0849 Ferrous Sulfate 325 MG TID 08/07 0900 DCD 08/07 PO 0849 Ferrous Sulfate 325 MG BID 08/06 2100 DC 08/06 PO 2032 Insulin Aspart 0 TIDAC 08/07 0800 DC SC Insulin Aspart 0 TIDAC 08/06 1845 DCD 08/07 SC 0850 Insulin Detemir 20 UNITS BID 08/06 0900 WAD 08/07 SC 0852 Insulin Human Regular 0 Q6 08/05 2359 [place] 08/06 SC 1324 Melatonin 5 MG AT BEDTIME PRN 08/06 0030 DCD 08/06 PO 2033 Metoprolol Tartrate 100 MG BID 08/06 0932 DCD 08/07 PO 0848 Omeprazole 40 MG DAILY AC 08/07 0700 DCD 08/07 PO 0555 Pantoprazole Sodium 40 MG DAILY 08/05 2330 [place] 08/06 IV 0858 Patient Medication 1 ED ONE 08/07 0000 NR Teaching ED 08/07 2359 Patient Medication 1 ED ONE ONE 08/06 1545 [place] 08/06 [facility] ED 08/06 1546 1641 Polyethylene Glycol 17 GM DAILY 08/07 0900 DCD PO Last 24 Hrs of Lab/Alex Results Last 24 Hrs of Labs/Mics: Laboratory Tests 08/07/17 0755: Anion Gap 11, Estimated GFR > 60, BUN/Creatinine Ratio 13.8, CBC w Diff NO MAN DIFF REQ, RBC 3.10 L, MCV 87.8, MCH 29.3, MCHC 33.4, RDW 13.0, MPV 8.3, Gran % 57.7, Lymphocytes % 31.6, Monocytes % 7.1, Eosinophils % 2.8, Basophils % 0.8, Absolute Granulocytes 2.4, Absolute Lymphocytes 1.3, Absolute Monocytes 0.3, Absolute Eosinophils 0.1, Absolute Basophils 0 08/06/17 2305: CBC w Diff NO MAN DIFF REQ, RBC 2.96 L, MCV 87.6, MCH 29.1, MCHC 33.2, RDW 13.2 , MPV 8.2, Gran % 58.6, Lymphocytes % 29.4, Monocytes % 9.4 H, Eosinophils % 2.0, Basophils % 0.6, Absolute Granulocytes 2.8, Absolute Lymphocytes 1.4, Absolute Monocytes 0.5, Absolute Eosinophils 0.1, Absolute Basophils 0 Assessment/Plan Assessment: Ms Koch is a 72 yr old woman w/ a PMHx of hypertension, class III obesity, type 2 diabetes, Niki's thyroiditis breast cancer status post mastectomy hyperlipidemia, previous GI bleed, carotid stenosis (follows up with Dr. Church dx'ed 2014 <50% on the left and 50-79% on the right), vitamin B12 deficiency came to the hospital with a chief concern of increased weakness, tiredness and dyspnea for the last 1 week. Assessment and plan 1. Weakness/shortness of breath-this can be secondary due to acute on chronic anemia. Patient underwent push enteroscopy yesterday, couldn't find any active bleeder. Repeat hemoglobin was 8.6. Patient tolerated the procedure well. Patient tolerated her feeds. GI requested a hematology evaluation for her anemia. Hematology saw her who suggested that she might be having problems with iron absorption due to Niki's thyroiditis. Patient might need IV infusion series she continues having a drop in her hemoglobin. Patient will follow the sack repairer as outpatient. Patient will be sent home with iron, vitamin C, Protonix. We will continue her metoprolol, and hold her lisinopril. Continue atorvastatin, Lexapro, pantoprazole. Patient is on Levemir and Novolog. Problem List: 1. GI bleeding Pain Ratin Pain Location: none Pain Goal: Remain pain free Pain Plan: tylenol Tomorrow's Labs & Rationales: cbc,bep
--- NOTE | 2017-08-07 07:55 | Cons- Hematology ---
General Information and HPI Consulting Request Date of Consult: 08/07/17 Requested By: Dawit TRUJILLO,Maria A Reason for Consult: anemia Source of Information: patient, old records Exam Limitations: no limitations History of Present Illness: Ms. Koch is a 72-year-old female with history of HTN, HLD, hypothyroidism ( Niki thyroiditis), and breast cancer s/p left mastectomy 17 years ago (Dr. Meeks) who presented to the hospital with fatigue and shortness of breath. She reports having lightheadedness and palpitation with exertion. She did have 3-4 days of black, tarry stool earlier this week. This has resolved by the time she presented. She states this happened previous also. She was evaluated last year in March by Dr. Keys with colonoscopy and no active bleeding was found. She presented to the hospital at that time with hemoglobin of 7.0. She was given 2 units of pRBC. She was started on omeprazole and iron supplements. She has not had bleeding since that time. She denies any other bleeding. She denies blood in the urine. She has no vaginal bleeding. She denies any epistaxis, hemoptysis , or hematemesis. She does take Plavix. She states she takes 1 iron tablet a day. She denies any recent illness. She has no fever or chills. She has no nausea or vomiting. She denies any weight loss. She has no night sweats. She does take vitamin B12 injection monthly. On presentation, she was noted to have a hemoglobin of 9.2 with hematocrit of 27.1. Reticulocytes of 3.08. Creatinine was normal. Bilirubin was normal. Stool guaiac was noted to be positive. CTA of the abdomen and pelvis was normal. She was taken for push enteroscopy on 08/06/[address] Keys. She was noted to have diffusely atrophic gastric mucosa. She has been started on oral iron twice daily. She has not needed transfusion. She feels about the same today. She denies any new issues. Allergies/Medications Allergies: Coded Allergies: No Known Allergies (08/05/17) Home Med List: Albuterol Sulfate (Proair Hfa) 90 MCG HFA.AER.AD 2 PUF INH AD PRN RESP. ( Reported) Aspirin (Ecotrin*) 81 MG TABLET.DR 1 TAB PO DAILY SUPPLEMENT (Reported) Clonazepam 2 MG TABLET 1 TAB PO QPM SLEEP (Reported) Clopidogrel Bisulfate (Clopidogrel) 75 MG TABLET 1 TAB PO DAILY BLOOD THINNER (Reported) Cyanocobalamin (Vitamin B-12) (Cyanocobalamin Injection) 1,000 MCG/ML VIAL 1 ML IM Q30D SUPPLEMENT (Reported) Ergocalciferol (Vitamin D2) (Vitamin D2) 50,000 UNIT CAPSULE 1 CAP PO Q3W SUPPLEMENT (Reported) Escitalopram Oxalate 20 MG TABLET 1 TAB PO DAILY DEPRESSION (Reported) Exenatide Microspheres (Bydureon Pen) (Unknown Strength) PEN.INJCTR (Unknown Dose) SC QW DM (Reported) Hydrocodone/Acetaminophen (Hydrocodon-Acetaminophen 5-325) 5 MG-325 MG TABLET 1 TAB PO BIDP PRN PAIN (Reported) Insulin Glargine,Hum.rec.anlog (Lantus Solostar) 100 UNIT/ML (3 ML) INSULN.PEN 60 UNIT SC QPM DM (Reported) Insulin Lispro (Humalog Kwikpen U-100) 100 UNIT/ML INSULN.PEN DM (Reported) Lisinopril/Hydrochlorothiazide (Lisinopril-Hctz 20-12.5 MG Tab) 20 MG-12.5 MG TABLET 1 TAB PO DAILY BP (Reported) Lovastatin 40 MG TABLET 1 TAB PO DAILY CHOLESTEROL (Reported) with food Metformin HCl (Metformin HCl ER) 500 MG [id number] 1 TAB PO BID DM (Reported) Metoprolol Tartrate 100 MG TABLET 1 TAB PO BID HEART/BP (Reported) Omeprazole 20 MG CAPSULE. 1 CAP PO DAILY GI (Reported) Current Medications: Current Medications Sig/Jessica Start time Last Medication Dose Route Stop Time Status Admin Acetaminophen 650 MG ONCE ONE 08/06 2014 DC 08/06 PO 08/06 Acetaminophen 500 MG ONCE ONE 08/06 0915 DC 08/06 PO 08/06 0916 0922 Albuterol Sulfate 2 PUF Q4-6 PRN PRN 08/05 2244 AC INH Atorvastatin Calcium 20 MG 1700 08/06 1700 AC 08/06 PO 174 Chlorhexidine 1 GM .STK-MED ONE 08/07 0733 DC Gluconate TOP 08/07 0734 Clonazepam 2 MG QPM 08/05 224 AC 08/06 PO 08/12 Dextrose/Sodium 1,000 ML Q13H 08/06 1500 DC 08/06 Chloride IV 08/07 0359 1641 Dextrose/Sodium 1,000 ML Q13H 08/06 0030 DC 08/06 Chloride IV 08/06 1329 0112 Escitalopram Oxalate 20 MG 0800 08/06 0800 AC 08/06 PO 0858 Ferrous Sulfate 325 MG BID 08/06 2100 AC 08/06 PO 2032 Insulin Aspart 0 TIDAC 08/07 0800 DC SC Insulin Aspart 0 TIDAC 08/06 1845 AC 08/06 SC 1852 Insulin Detemir 20 UNITS BID 08/06 0900 AC 08/06 SC 2117 Insulin Human Regular 2 UNITS .STK-MED ONE 08/06 1320 DC IV 08/06 1321 Insulin Human Regular 0 Q6 08/05 2359 DC 08/06 SC 1324 Melatonin 5 MG AT BEDTIME PRN 08/06 0030 AC 08/06 PO 2033 Metoprolol Tartrate 100 MG BID 08/06 0932 AC 08/06 PO 2055 Omeprazole 40 MG DAILY AC 08/07 0700 AC 08/07 PO 0555 Pantoprazole Sodium 40 MG DAILY 08/05 2330 DC 08/06 IV 0858 Patient Medication 1 ED ONE ONE 08/06 1545 DC 08/06 Teaching ED 08/06 1546 1641 Review of Systems Review of Systems Constitutional: Reports: malaise, weakness. Denies: chills, diaphoresis, fever, unexplained weight loss. Cardiovascular: Reports: palpitations. Denies: chest pain. Respiratory: Reports: short of breath. Denies: cough, hemoptysis. GI: Reports: melena. Denies: abdominal pain, bloating, constipation, diarrhea, nausea, bloody stool, vomiting, steatorrhea. Genitourinary: Denies: hematuria. Musculoskeletal: Reports: back pain. Skin: Denies: erythema. Neurological/Psychological: Denies: anxiety, confusion. Hematologic/Endocrine: Denies: bruising, bleeding. Immunologic/Allergic: Denies: lymphadenopathy. All Other Systems: Reviewed and Negative Past History Travel History Traveled to [place] past 21 day No Medical History Blood Transfusion Hx: No Neurological: NONE EENT: NONE Cardiovascular: hypertension, hyperlipidemia Gastrointestinal: GI BLEED Hepatic: NONE Renal: NONE Musculoskeletal: NONE Psychiatric: NONE Endocrine: diabetes Blood Disorders: anemia Cancer(s): breast cancer POT PUNCHER/Reproductive: NONE Surgical History Surgical History: non-contributory, masectomy Psychosocial History Where Do You Live? Home Services at Home: None Smoking Status: Former Smoker ETOH Use: denies use Illicit Drug Use: denies illicit drug use Exam & Diagnostic Data Vital Signs and I&O Vital Signs Date Time Temp Pulse Resp B/P B/P Pulse O2 O2 Flow FiO2 Mean Ox Delivery Rate 08/07 0558 97.9 73 18 118/58 93 Room Air 08/07 2055 98.1 75 18 130/64 98 Room Air 08/06 2054 75 130/64 08/07 2027 98.2 68 16 122/62 98 Nasal 2.0L Cannula 08/06 1625 97.9 78 20 138/58 95 Room Air 08/06 1440 98.0 77 20 110/75 99 Room Air 08/06 1045 84 128/50 08/06 0905 Room Air Room Air Intake & Output 08/07 0800 08/07 0000 08/06 1600 Intake Total 120 200 600 Output Total 500 400 400 Balance -380 -200 200 Intake, IV 600 Intake, Oral 120 200 Number 1 Bowel Movements Output, Urine 500 400 400 Patient 97.522 kg Weight Physical Exam General Appearance: well developed/nourished, no apparent distress, alert, awake , comfortable Head: atraumatic, normal appearance Eyes: Bilateral: PERRL, EOMI. Ears, Nose, Throat: normal pharynx Respiratory: normal breath sounds, chest non-tender, no respiratory distress Cardiovascular: regular rate/rhythm Gastrointestinal: normal bowel sounds, soft, non-tender, no organomegaly, obese Extremities: no edema Neurologic/Psych: awake, alert, oriented x 3 Cranial Nerves: normal hearing, normal speech Skin: normal color, warm/dry Lymphatic: no anterior cervical ganesh Last 48 Hours of Lab Results: Laboratory Tests 08/06 08/06 2305 0720 Chemistry Sodium (137 - 145 mmol/L) 139 Potassium (3.5 - 5.1 mmol/L) 4.2 Chloride (98 - 107 mmol/L) 103 Carbon Dioxide (22 - 30 mmol/L) 23 Anion Gap (5 - 16) 13 BUN (7 - 17 mg/dL) 13 Creatinine (0.5 - 1.0 mg/dL) 0.7 Estimated GFR (>60 ml/min) > 60 BUN/Creatinine Ratio (7 - 25 %) 18.6 Troponin I (< 0.11 ng/ml) < 0.01 Hematology CBC w Diff NO MAN DIFF REQ NO MAN DIFF REQ WBC (4.8 - 10.8 /CUMM) 4.8 4.1 L RBC (4.20 - 5.40 /CUMM) 2.96 L 2.85 L Hgb (12.0 - 16.0 G/DL) 8.6 L 8.4 L Hct (37 - 47 %) 25.9 L 24.9 L MCV (81.0 - 99.0 FL) 87.6 87.1 MCH (27.0 - 31.0 PG) 29.1 29.4 MCHC (33.0 - 37.0 G/DL) 33.2 33.7 RDW (11.5 - 14.5 %) 13.2 12.9 Plt Count (130 - 400 /CUMM) 243 209 MPV (7.4 - 10.4 FL) 8.2 8.4 Gran % (42.2 - 75.2 %) 58.6 56.8 Lymphocytes % (20.5 - 51.1 %) 29.4 32.1 Monocytes % (1.7 - 9.3 %) 9.4 H 8.4 Eosinophils % (0 - 5 %) 2.0 1.9 Basophils % (0.0 - 2.0 %) 0.6 0.8 Absolute Granulocytes (1.4 - 6.5 /CUMM) 2.8 2.3 Absolute Lymphocytes (1.2 - 3.4 /CUMM) 1.4 1.3 Absolute Monocytes (0.10 - 0.60 /CUMM) 0.5 0.3 Absolute Eosinophils (0.0 - 0.7 /CUMM) 0.1 0.1 Absolute Basophils (0.0 - 0.2 /CUMM) 0 0 Retic Count (0.5 - 2.0 %) 3.08 H 08/06 0120 Urines Urine Color (YEL,AMB,STR) YEL Urine Clarity (CLEAR) HAZY H Urine pH (5.0 - 8.0) 6.0 Ur Specific [place] (1.001 - 1.035) <= 1.005 Urine Protein (NEG,<30 MG/DL) NEG Urine Ketones (NEG) NEG Urine Nitrite (NEG) NEG Urine Bilirubin (NEG) NEG Urine Urobilinogen (0.1 - 1.0 EU/dl) 0.2 Ur Leukocyte Esterase (NEG) MOD H Ur Microscopic SEDIMENT EXAMINED Urine RBC (0 - 5 /HPF) 3-5 Urine WBC (0 - 2 /HPF) 15-25 H Ur Epithelial Cells (NONE,FEW) MANY H Urine Bacteria (NEG/NONE) FEW H Urine Mucus (FEW,NONE) FEW Urine Hemoglobin (NEG) TRACE-INTACT Urine Glucose (N MG/DL) NEG 08/05 1730 Chemistry Sodium (137 - 145 mmol/L) 140 Potassium (3.5 - 5.1 mmol/L) 4.1 Chloride (98 - 107 mmol/L) 103 Carbon Dioxide (22 - 30 mmol/L) 23 Anion Gap (5 - 16) 14 BUN (7 - 17 mg/dL) 19 H Creatinine (0.5 - 1.0 mg/dL) 0.8 Estimated GFR (>60 ml/min) > 60 BUN/Creatinine Ratio (7 - 25 %) 23.8 Glucose (65 - 99 mg/dL) 141 H Calcium (8.4 - 10.2 mg/dL) 9.6 Iron (37 - 170 ug/dL) 30 L TIBC (265 - 497 ug/dL) 480 Ferritin (11.1 - 264 ng/mL) 9.8 L Total Bilirubin (0.2 - 1.3 mg/dL) 0.5 AST (14 - 36 U/L) 15 ALT (9 - 52 U/L) 21 Alkaline Phosphatase (<127 U/L) 44 Troponin I (< 0.11 ng/ml) < 0.01 Total Protein (6.3 - 8.2 g/dL) 6.6 Albumin (3.5 - 5.0 g/dL) 4.0 Globulin (1.9 - 4.2 gm/dL) 2.6 Albumin/Globulin Ratio (1.1 - 2.2 %) 1.5 Lipase (23 - 300 U/L) 44 TSH &T3 &Free T4 Intrp (0.270 - 4.20 uIU/mL) 1.290 Coagulation PT (9.4 - 12.5 SEC) 12.3 INR (0.90 - 1.19) 1.13 APTT (25 - 37 SEC) 27 D-Dimer High Sensitivty (0 - 243 ng/ml) < 200 Hematology CBC w Diff NO MAN DIFF REQ WBC (4.8 - 10.8 /CUMM) 5.6 RBC (4.20 - 5.40 /CUMM) 3.11 L Hgb (12.0 - 16.0 G/DL) 9.2 L Hct (37 - 47 %) 27.1 L MCV (81.0 - 99.0 FL) 87.3 MCH (27.0 - 31.0 PG) 29.6 MCHC (33.0 - 37.0 G/DL) 33.8 RDW (11.5 - 14.5 %) 13.3 Plt Count (130 - 400 /CUMM) 242 MPV (7.4 - 10.4 FL) 8.5 Gran % (42.2 - 75.2 %) 67.6 Lymphocytes % (20.5 - 51.1 %) 23.4 Monocytes % (1.7 - 9.3 %) 6.8 Eosinophils % (0 - 5 %) 1.6 Basophils % (0.0 - 2.0 %) 0.6 Absolute Granulocytes (1.4 - 6.5 /CUMM) 3.8 Absolute Lymphocytes (1.2 - 3.4 /CUMM) 1.3 Absolute Monocytes (0.10 - 0.60 /CUMM) 0.4 Absolute Eosinophils (0.0 - 0.7 /CUMM) 0.1 Absolute Basophils (0.0 - 0.2 /CUMM) 0 Imaging/Other Studies: CTA Abdomen/pelvis 08/05/2017: No evidence of active intraluminal contrast accumulation to suggest an active site of GI bleeding at the time of the scan. Assessment/Plan Assessment: Ms. Koch is a 72-year-old female with history of HTN, HLD, hypothyroidism ( Niki thyroiditis), and breast cancer s/p left mastectomy 17 years ago (Dr. Meeks) who presented to the hospital with fatigue and shortness of breath. On presentation, she was noted to have a hemoglobin of 9.2 with hematocrit of 27.1. Her platelet and WBC was relatively normal. Work up demonstrated slightly elevated reticulocytes of 3.08. Creatinine was normal. Bilirubin was normal. Stool guaiac was noted to be positive. Vitamin B12 was normal. Folate was normal. Iron studies demonstrated low serum iron at 30, normal TIBC at 480, and low ferritin at 9.8. CTA of the abdomen and pelvis was normal. She was taken for push enteroscopy on 08/06/[address] Keys. She was noted to have diffusely atrophic gastric mucosa. Her history and laboratory data suggest she had a GI bleeding. Bleeding likely resolved by the time she presented. She has been normal with her blood work prior to presentation. She has iron deficiency anemia. She should be evaluate when she has active bleeding. She has a higher risk of bleeding given her Plavix and aspirin. She will need iron supplementation of at least 2-3 times a day. She should take vitamin C with iron. If she does not tolerate high iron supplementation, she may need parenteral iron. She may follow up as outpatient in 4-6 weeks to repeat iron evaluation. If iron continues to be low, she may also need evaluation on absorption issues. Recommendations: Iron deficiency anemia: -ferrous sulfate 325 mg BID to TID as tolerated -vitamin C with iron supplementation -recheck iron studies in 4-6 weeks -follow up as outpatient in 4-6 weeks -monitor for recurrent GI bleeding Breast cancer: -continue mammogram annually, due 08/2017 Problem List: 1. GI bleeding 2. Symptomatic anemia 3. YASMINE (iron deficiency anemia) Other Findings/Comments: Please call [phone] with any questions or concerns. Consult Acknowledgment - Thank you for your consult request.
--- NOTE | 2017-08-07 08:09 | PN- Student ---
Subjective Subjective: No acute events overnight. Patient seen and examined this morning. Patient sitting at the side of the bed. Patient had no iushues and no complains. Able to tolerated the fluids without any nausea/vomiting. Patient ambulating okay. Denied headache, palpitation, SOB, abdominal pain, dysuria. Patient feel ready to go home. Objective Objective: Vital Signs Date Time Temp Pulse Resp B/P B/P Pulse O2 O2 Flow FiO2 Mean Ox Delivery Rate 08/07 0558 97.9 73 18 118/58 93 Room Air 08/07 2055 98.1 75 18 130/64 98 Room Air 08/06 2054 75 130/64 08/07 2027 98.2 68 16 122/62 98 Nasal 2.0L Cannula 08/06 1625 97.9 78 20 138/58 95 Room Air 08/06 1440 98.0 77 20 110/75 99 Room Air 08/06 1045 84 128/50 08/06 0905 Room Air Room Air Intake & Output 08/07 1600 08/07 0800 08/07 0000 Intake Total 120 200 Output Total 500 400 Balance -380 -200 Intake, Oral 120 200 Output, Urine 500 400 Patient 215 lb Weight PE: General= obese elderly woman, alert and oriented without any distress HEENT= NCAT, anicteric sclera, most oral mucosa without exudate CVS= reglar rate and rythm, normal S1 and S2 Lungs= symetrical chest wall expansion, clear breathsounds, no added sounds Abd= presented bowel sounds, nontender, nondistended, no guarding or rebound Extremities= palpable pulses, trace lower limb edema Results Results: Laboratory Tests 08/07/17 0755: Anion Gap 11, Estimated GFR > 60, BUN/Creatinine Ratio 13.8, CBC w Diff NO MAN DIFF REQ, RBC 3.10 L, MCV 87.8, MCH 29.3, MCHC 33.4, RDW 13.0, MPV 8.3, Gran % 57.7, Lymphocytes % 31.6, Monocytes % 7.1, Eosinophils % 2.8, Basophils % 0.8, Absolute Granulocytes 2.4, Absolute Lymphocytes 1.3, Absolute Monocytes 0.3, Absolute Eosinophils 0.1, Absolute Basophils 0 08/06/17 2305: CBC w Diff NO MAN DIFF REQ, RBC 2.96 L, MCV 87.6, MCH 29.1, MCHC 33.2, RDW 13.2 , MPV 8.2, Gran % 58.6, Lymphocytes % 29.4, Monocytes % 9.4 H, Eosinophils % 2.0, Basophils % 0.6, Absolute Granulocytes 2.8, Absolute Lymphocytes 1.4, Absolute Monocytes 0.5, Absolute Eosinophils 0.1, Absolute Basophils 0 08/06/17 0720: Anion Gap 13, Estimated GFR > 60, BUN/Creatinine Ratio 18.6, Troponin I < 0.01, CBC w Diff NO MAN DIFF REQ, RBC 2.85 L, MCV 87.1, MCH 29.4, MCHC 33.7, RDW 12.9 , MPV 8.4, Gran % 56.8, Lymphocytes % 32.1, Monocytes % 8.4, Eosinophils % 1.9, Basophils % 0.8, Absolute Granulocytes 2.3, Absolute Lymphocytes 1.3, Absolute Monocytes 0.3, Absolute Eosinophils 0.1, Absolute Basophils 0, Retic Count 3.08 H 08/06/17 0120: Urine Color YEL, Urine Clarity HAZY H, Urine pH 6.0, Ur Specific [place] <= 1.005, Urine Protein NEG, Urine Ketones NEG, Urine Nitrite NEG, Urine Bilirubin NEG, Urine Urobilinogen 0.2, Ur Leukocyte Esterase MOD H, Ur Microscopic SEDIMENT EXAMINED, Urine RBC 3-5, Urine WBC 15-25 H, Ur Epithelial Cells MANY H, Urine Bacteria FEW H, Urine Mucus FEW, Urine Hemoglobin TRACE-INTACT, Urine Glucose NEG 08/05/17 1730: Anion Gap 14, Estimated GFR > 60, BUN/Creatinine Ratio 23.8, Glucose 141 H, Calcium 9.6, Iron 30 L, TIBC 480, Ferritin 9.8 L, Total Bilirubin 0.5, AST 15, ALT 21, Alkaline Phosphatase 44, Troponin I < 0.01, Total Protein 6.6, Albumin 4.0, Globulin 2.6, Albumin/Globulin Ratio 1.5, Lipase 44, TSH &T3 &Free T4 Intrp 1.290, PT 12.3, INR 1.13, APTT 27, D-Dimer High Sensitivty < 200, CBC w Diff NO MAN DIFF REQ, RBC 3.11 L, MCV 87.3, MCH 29.6, MCHC 33.8, RDW 13.3, MPV 8.5, Gran % 67.6, Lymphocytes % 23.4, Monocytes % 6.8, Eosinophils % 1.6, Basophils % 0.6, Absolute Granulocytes 3.8, Absolute Lymphocytes 1.3, Absolute Monocytes 0.4 , Absolute Eosinophils 0.1, Absolute Basophils 0 Assessment/Plan Assessment: 72 y/o F with PMhx of HTN, HLD, anemia presented with weakness, tireness and SOB. Patient noted black tarry stool for three day prior to admission. Patient on clopidogrel and Aspirin at home. Vitals signs stable. PE and CTA did not demostrated active bleeding. Labs at the time of admission were pertinent for anemia of 9.2 (baseline of 12.0 in Nov 2016) and hct of 27.1. No thrombocytopenia or leukocytosis. Prior colonoscopy (back in 05/2016) demostrated left diverticulosis, patchy erythematous change in the cecum not consistent with AVM, and small internal hemorrhoids. Based on History/PE, Labs and imagine, the source may be from GI. At this point lower GI bleed is more likely , but upper GI cannot be excluded due to tarry black stool. Push endoscopy with biopsy and colonoscopy were performed: -Colonoscopy did not show any changes from the previous -Endoscopy showed atrophic gastric mucosa but no active bleeding Hemotologist was consulted, looking for extraintestinal anemia, F/U as an outpatient DDx include diverticular bleed, hemorrhoidal bleed, gastritis, PUD, malignancy, absorption deficiency in the setting of Niki, nutritional def. MCV of 87 in the setting of anemia make unlikely folate and B12 unlikely. Anemia of chronic disease and iron def. is more likely. Ferritin is low and iron is low, iron def is top in the ddx, specially if GI loss. No signs of active GI sources. Patient may have stop bleeding prior to evaluation. Vitals and labs stable fort the moment. Plan: Plan: GI bleed leading to iron def in the setting of dual antiplatelet at home: -D/C today -F/U GI and Hemo notes -ferrous sulfate 325 mg BID to TID as tolerated -vitamin C with iron supplementation -recheck iron studies in 4-6 weeks -follow up as outpatient in 4-6 weeks -monitor for recurrent GI bleeding -re-start plavix and asa -Monitor vitals -T&C with a goal of Hgb > 8.0 -F/U CBC and Chemistry -Hold dual antiplatelet (plavix and aspirin) -Resume Metoprolol -F/U recs -NPO if any procedure is recommended, if not clear liquid diet and advance as tolerated -Cont. IV hydration if low PO intake -Encourage ambulation DVT ppx with SCD for the moment Full code
[2017-08-07] MEDS ORDERED: FERROUS SULFAT325 M2 PO ×2 (08:21→10:49)
[2017-08-07] MEDS ORDERED: VITAMIN C500 M4 PO ×2 (08:36→10:49)
[2017-08-07 08:48] VITALS: BP 118/58
[2017-08-07 08:55] LABS: ABSOLUTE BASOPHIL COUNT 0 /CUMM (0.0-0.2); ABSOLUTE EOSINOPHIL COUNT 0.1 /CUMM (0.0-0.7); ABSOLUTE GRANULOCYTE CT 2.4 /CUMM (1.4-6.5); ABSOLUTE LYMPH COUNT 1.3 /CUMM (1.2-3.4); ABSOLUTE MONOCYTE COUNT 0.3 /CUMM (0.10-0.60); BASOPHIL % 0.8 % (0.0-2.0); EOSINOPHIL % 2.8 % (0-5); GRANULOCYTE % 57.7 % (42.2-75.2); HEMATOCRIT 27.2 % (37-47); MEAN CORPUSCULAR HGB 29.3 PG (27.0-31.0); MEAN CORPUSCULAR HGB CONC 33.4 G/DL (33.0-37.0); MEAN CORPUSCULAR VOLUME 87.8 FL (81.0-99.0); MEAN PLATELET VOLUME 8.3 FL (7.4-10.4); PLATELET COUNT 244 /CUMM (130-400); WHITE BLOOD CELL COUNT 4.2 /CUMM (4.8-10.8)
[2017-08-07] MEDS ORDERED: PROTONIX40 M3 PO ×2 (10:44→10:49)
--- NOTE | 2017-08-07 11:53 | PN- Att Addend ---
Attending Addendum Attending Brief Note Patient seen and examined, overall feeling much better. She took a walk today and denies feeling any shortness of breath. Her energy level is back to baseline. Her H&H remained stable. Patient had a push endoscopy yesterday which does not show any active site clean. GI recommends to continue the PPI. Patient also seen by hematology and they recommended to start the patient on more frequent iron replacement as well as vitamin C to help with absorption. 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 We confirmed with Dr. Keys and he is okay keeping the patient on aspirin and Plavix. PPI will be added. Patient otherwise medically stable for discharge home and should follow with primary care doctor, GI and hematology as an outpatient. Her repeat CBC should be repeated in the next 4-8 weeks and results should be copied to her primary doctor as well as hematology. Discussed with patient's son at bedside.
--- NOTE | 2017-08-07 14:13 | Discharge Summary ---
Visit Information Visit Dates Admission Date: 08/05/17 Discharge Date: 08/07/17 Hospital Course Course Attending Physician: Maria A Pastor MD Primary Care Physician: Cynthia TRUJILLO,Kaitlin Jenkins Hospital Course: Ms. Torsten moss 72yo F w/ pMH of hypertension, hyperlipidemia, diabetes, breast cancer status post mastectomy, normocytic anemia, presented to ER with family for increased weakness, tiredness, and shortness of breath for the past week started around last Thursday prior to this admission. Patient did endorse some lightheadedness when she got up and walk around/exertion along with some feelings of heart racing, and some mild mid lower abdominal pain not associated with the bowel movement activities. Patient also endorsed some dark stools, about 3-4 times per day, on Thursday, Thursday, and Thursday, however not today prior to this admission. The patient described this to as dark and tarry/sticky, however denies any loose stools. Patient stated that the symptoms was worse similar to what she had back in March 2016 where she was observed overnight in ER, was 2 units of blood transfusion for anemia, and later a colonoscopy/ building by Dr. Keys, however no active source of bleeding was found, and she had been symptom-free ever since. Patient was some low appetite for the past days, especially today, and has not been compliant with her insulin because of loss of strength. Patient was seen Dr. brandon for her diabetes. During our clinical interaction, patient denied fever/diaphoresis/night sweat/ weight change/cough/Chest Pain/rinary abnormality, or other skin/musculoskeletal /neurological/mood disorders. Assessment and plan Weakness/shortness of breath Patient's weakness and shortness of breath, can be secondary due to acute on chronic anemia. Patient hemoglobin dropped from 9.2-8.4. Her endoscopy and colonoscopy in May 2016 showed diverticulosis with no obvious bleeding source. She also had a PillCam which was normal. Gastroenterology consulted who did do a push enteroscopy showed benign 4 mm antral nodule, fundic gland polyps both biopsied. We continued rest of her home medication. On day of discharge her hemoglobin was 9.1. Since they couldn't see any obvious source of GI bleed him a gas well pumper suggested hematology opinion. Hematology saw the patient and advised to add iron sulfate 3 times a day along with vitamin C and check iron studies in 4-6 weeks. Patient was advised to follow-up with the gas well pumper, follow up biopsy reports with the primary care physician and gas well pumper. Patient also advised to follow up CBC in 4-6 weeks with her primary care provider. Patient advised to follow with primary care physician/gas well pumper/ housefellow Allergies: Coded Allergies: No Known Allergies (08/05/17) Pertinent Lab Results: Chest x-ray Low lung volumes but no acute pulmonary disease. CTA No evidence of active intraluminal contrast accumulation to suggest an active site of GI bleeding at the time of the scan. Disposition Summary Disposition Principal Diagnosis: GI bleed Anemia Additional Diagnosis: none Discharge Disposition: home or self care Discharge Instructions General Discharge Information Code Status: Full Code Patient's Diet: Diabetic diet Patient's Activity: As tolerated Follow-Up Instructions/Appts: Follow-up with primary care provider/housefellow/gas well pumper Medications at Discharge Discharge Medications: Stop taking the following medications: Omeprazole (Omeprazole) 20 MG CAPSULE.DR ORAL DAILY Qty = 90 Continue taking these medications: Metformin HCl (Metformin HCl ER) 500 MG [id number] 1 Tablet ORAL TWICE DAILY Qty = 60 Comments: DID NOT ADMINISTER Metoprolol Tartrate (Metoprolol Tartrate) 100 MG TABLET 1 Tablet ORAL TWICE DAILY Qty = 180 Comments: Last Taken:08/07/17 Time:0830 AM Hydrocodone/Acetaminophen (Hydrocodon-Acetaminophen 5-325) 5 MG-325 MG TABLET 1 Tablet ORAL 2 x Daily as needed as needed for PAIN Qty = 60 Comments: DID NOT TAKE IN THE HOSPITAL Clonazepam (Clonazepam) 2 MG TABLET 1 Tablet ORAL Every night Qty = 60 Comments: Last Taken:08/06/17 Time:1030 PM Insulin Lispro (Humalog Kwikpen U-100) 100 UNIT/ML INSULN.PEN Units Inject into fatty tissue BEFORE MEALS AND AT BEDTIME Qty = 30 Comments: Last Taken:08/07/17 Time:0850 AM 2 UNITS NOVOLOG Exenatide Microspheres (Bydureon Pen) 2 MG/0.65 ML PEN.INJCTR Inject into fatty tissue Once a Week Qty = 12 Comments: DID NOT TAKE IN THE HOSPITAL Lisinopril/Hydrochlorothiazide (Lisinopril-Hctz 20-12.5 MG Tab) 20 MG-12.5 MG TABLET 1 Tablet ORAL DAILY Qty = 90 Comments: DID NOT ADMINISTER Escitalopram Oxalate (Escitalopram Oxalate) 20 MG TABLET 1 Tablet ORAL DAILY Qty = 90 Comments: Last Taken:08/07/17 Time:0830 AM Lovastatin (Lovastatin) 40 MG TABLET 1 Tablet ORAL DAILY Qty = 90 Instructions: with food Comments: Last Taken:08/06/17 Time:5:45PM ATROVASTATIN USED A SUBSTITUTION Aspirin (Ecotrin*) 81 MG TABLET. 1 Tablet ORAL DAILY Comments: DID NOT ADMINISTER IN THE HOSPITAL Cyanocobalamin (Vitamin B-12) (Cyanocobalamin Injection) 1,000 MCG/ML VIAL 1 Milliliters INTRAMUSC ONCE A MONTH Comments: DID NOT TAKE IN THE HOSPITAL Ergocalciferol (Vitamin D2) (Vitamin D2) 50,000 UNIT CAPSULE 1 Capsule ORAL Q3W Comments: DID NOT TAKE IN THE HOSPITAL Insulin Glargine,Hum.rec.anlog (Lantus Solostar) 100 UNIT/ML (3 ML) INSULN.PEN 60 Unit Inject into fatty tissue Every night Qty = 45 Comments: Last Taken:08/07/17 Time:0830 AM SUBSTITUTION LEVEMIR 20 UNITS Clopidogrel Bisulfate (Clopidogrel) 75 MG TABLET 1 Tablet ORAL DAILY Qty = 90 Comments: DID NOT TAKE IN THE HOSPITAL Albuterol Sulfate (Proair Hfa) 90 MCG HFA.AER.AD 2 Puff Inhale through mouth As Directed as needed for RESP. Qty = 8 Comments: DID NOT TAKE IN HOSPIAL Start taking the following new medications: Ascorbic Acid (Vitamin C) 500 MG TAB.CHEW 1 Tablet ORAL THREE TIMES DAILY Qty = 90 Refills = 1 Instructions: . Comments: DID NOT START MEDICATION Pantoprazole Sodium (Protonix) 40 MG TABLET.DR 1 Tablet ORAL DAILY Qty = 30 Refills = 1 Instructions: . Comments: ADMINISTERED PRILOSEC AT 08/07/17 TIME:0600 AM Ferrous Sulfate (Ferrous Sulfate) 325 MG (65 MG IRON) TABLET. 325 Milligram ORAL THREE TIMES DAILY Qty = 90 Refills = 1 Instructions: . Comments: Last Taken:08/07/17 Time:0830 AM Copies To: Cynthia TRUJILLO,Kaitlin Jenkins; Karlene TRUJILLO,BarringtonLeanne Keys MD,[place]
== END 2017-08-07 13:15 | DRG 378 ==
LOC: ERH 16:50 → ERHI 20:31 → 2NA 20:31 → ENRESERV 22:08 → ENTRNSPT 22:16 → EDTRNSPT 22:27 → EDTRNSPTSTS 22:27 → 2NA 22:38 → CMPTRNSPT 22:46 → 2NA 22:50 → ENPENDDIS 08-07 11:02 → 2NA 08-07 13:15
PROVIDERS: Internal Medicine Endocrinology, Diabetes & Metabolism; Physician Assistant Medical; Student in an Organized Health Care Education/Training Program
PROC: 0DB78ZX Excision of Stomach, Pylorus, Via Natural or Artificial Opening Endoscopic, Diagnostic (ICD-10-PCS; principal; 2017-08-06)
DX: K92.2 Gastrointestinal hemorrhage, unspecified (principal); Z68.41 Body mass index [BMI] 40.0-44.9, adult; D62 Acute posthemorrhagic anemia; D51.9 Vitamin B12 deficiency anemia, unspecified; E11.42 Type 2 diabetes mellitus with diabetic polyneuropathy; R42 Dizziness and giddiness; E66.9 Obesity, unspecified; I10 Essential (primary) hypertension; E78.5 Hyperlipidemia, unspecified; Z85.3 Personal history of malignant neoplasm of breast; Z90.10 Acquired absence of unspecified breast and nipple; K31.7 Polyp of stomach and duodenum
CPT/HCPCS: 2NASP; 36592; 71045; 74174; 81001; 82436; 93005; 93010; 97110-GO; 97116-GO; 97161-GP; J1815; J3490; J7042